=== PATIENT | male | born 1955 | race Caucasian/White ===

== ENCOUNTER 2019-05-14 17:14 | Emergency (ER) | payer MEDICARE ==
[2019-05-14 17:35] VITALS: TEMP 98.8
[2019-05-14] MEDS ORDERED: SULFA/TRIMETH 800/160 (DS) TAB 1 EA TAB PO ONE (17:38)
[2019-05-14] MEDS ORDERED: cefTRIAXone SODIUM 1 GM VIAL IM ONE (17:38)
[2019-05-14] MEDS ORDERED: LIDOCAINE 1% 10 ML VIAL INJ ONE (17:40)
--- NOTE | 2019-05-14 17:42 | ED.PDOC ---
History of Present Illness - General Chief Complaint: Skin/Abrasion/Tear Stated Complaint: abscess to right axilla Time Seen by Provider: 05/14/19 17:37 Source: patient Exam Limitations: no limitations - History of Present Illness Initial Comments: The patient is a 63-year-old male presenting secondary to cellulitis and abscess formation of the right axilla. He has 4 or 5 separate small spots. These have been present for the last 5 or 6 days. No definite fever. Severity: mild Improving Factors: nothing Worsening Factors: nothing Associated Symptoms: denies symptoms Allergies/Adverse Reactions: Allergies NO KNOWN ALLERGY Allergy (Verified 05/14/19 17:29) Home Medications: Ambulatory Orders Amlodipine Besylate 10 mg PO DAILY 05/14/19 DULoxetine HCL [Cymbalta] 30 mg PO BEDTIME 05/14/19 Gabapentin 400 mg PO Q4H 05/14/19 Sulfa/Trimeth 800/160 (Ds) Tab [Bactrim DS Tab] 1 ea PO BID #14 tab 05/14/19 raNITIdine HCL [Zantac] 150 mg PO DAILY 05/14/19 Review of Systems - Review of Systems Constitutional: States: no symptoms reported EENTM: States: no symptoms reported Respiratory: States: no symptoms reported Cardiology: States: no symptoms reported Gastrointestinal/Abdominal: States: no symptoms reported Genitourinary: States: no symptoms reported Musculoskeletal: States: no symptoms reported Skin: States: see HPI Neurological: States: no symptoms reported Endocrine: States: no symptoms reported All other Systems: No Change from Baseline Past Medical History (General) - Patient Medical History Hx Stroke: No Hx Congestive Heart Failure: No Hx Hypertension: Yes Hx Diabetes: No Hx Cancer: Yes - Throat - Vaccination History Hx Tetanus, Diphtheria Vaccination: - unknown Hx Influenza Vaccination: Yes Hx Pneumococcal Vaccination: Yes - Social History Hx Tobacco Use: No Family Medical History - Family History Father Family History: Unknown Living Status: Unknown Physical Exam - Physical Exam General Appearance: Alert, Comfortable, No apparent distress Eye Exam: bilateral normal Ears, Nose, Throat: hearing grossly normal, normal ENT inspection, normal pharynx Neck: full range of motion, supple Respiratory: no respiratory distress, no accessory muscle use Cardiovascular/Chest: normal peripheral pulses, no edema Peripheral Pulses: radial,right: 2+, radial,left: 2+ Gastrointestinal/Abdominal: non tender, soft Rectal Exam: deferred Back Exam: no CVA tenderness, no vertebral tenderness Extremity: normal range of motion, non-tender, normal inspection, no pedal edema, normal capillary refill 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 Comments: Vital Signs - 24 hr 05/14/19 17:26 Temperature 98.8 F Pulse Rate [ 95 H Left Brachial] Respiratory 20 Rate Blood Pressure 116/94 [Left Arm] O2 Sat by Pulse 98 Oximetry Progress - Progress Progress: 05/14/19 17:40 the patient is a 63-year-old male presenting secondary to cellulitis and small abscess formation of the right axilla. Risk and benefits of drainage are explained and patient agrees to proceed. Alcohol swab. Used to prep. 18- gauge needle is used to drain 1 cc of pus from small abscess. Patient was started on Bactrim and will be on it for 7 days. ER warnings were given for any worsening. Wound culture is being done. Departure - Departure Clinical Impression: Abscess of axillary region Disposition: Discharge to Home or Self Care Condition: Fair Departure Forms: ED Discharge - Pt. Copy, Patient Portal Self Enrollment Instructions: DI for Wound Infection Diet: regular diet Activity: increase activity as tolerated Referrals: Lizz Kennedy NP [Primary Care Provider] - 1-2 Weeks Prescriptions: Sulfa/Trimeth 800/160 (Ds) Tab [Bactrim DS Tab] 1 ea PO BID #14 tab Home Medications: Ambulatory Orders Amlodipine Besylate 10 mg PO DAILY 05/14/19 DULoxetine HCL [Cymbalta] 30 mg PO BEDTIME 05/14/19 Gabapentin 400 mg PO Q4H 05/14/19 Sulfa/Trimeth 800/160 (Ds) Tab [Bactrim DS Tab] 1 ea PO BID #14 tab 05/14/19 raNITIdine HCL [Zantac] 150 mg PO DAILY 05/14/19 Additional Instructions: the patient is a 63-year-old male presenting secondary to cellulitis and small abscess formation of the right axilla. drained 1 cc of pus from small abscess. Patient was started on Bactrim and will be on it for 7 days. ER warnings were given for any worsening. Wound culture is being done.
[2019-05-14 18:06] VITALS: BP 154/100; O2SAT 97
== END 2019-05-14 18:05 | disposition home or self-care (01) ==
LOC: ER 17:14
DX: L02.411 Cutaneous abscess of right axilla (principal); I10 Essential (primary) hypertension; Z85.89 Personal history of malignant neoplasm of other organs and systems
CPT/HCPCS: 87070; 87205; J0696

== ENCOUNTER 2019-05-14 22:20 | Inpatient (IN) | payer MEDICARE ==
--- NOTE | 2019-05-14 23:24 | RAD ---
EXAM: XR Chest, 1 View CLINICAL HISTORY: 63 years old and is Male; ams TECHNIQUE: Frontal view of the chest. COMPARISON: No relevant prior studies available. FINDINGS: Limitations: None. Lungs: Unremarkable. No consolidation. Pleural space: Unremarkable. No pneumothorax. Heart: Unremarkable. No cardiomegaly. Mediastinum: Unremarkable. Bones/joints: Unremarkable. IMPRESSION: No acute findings. Electronically signed by: Millie Loomis MD 05/14/2019 11:22 PM CDT
--- NOTE | 2019-05-14 23:25 | CT ---
CLINICAL HISTORY: ams COMPARISON: None. TECHNIQUE: CT HEAD WITHOUT IV CONTRAST on 05/14/2019 10:48 PM CDT This exam was performed according to our departmental dose-optimization program, which includes automated exposure control, adjustment of the mA and/or kV according to patient size and/or use of iterative reconstruction technique. FINDINGS: There is a tiny focus of hyperdensity in the left parietal lobe measuring almost 2 mm. This may represent a small focus of hemorrhage. Inman-white differentiation is preserved. There is no hydrocephalus. There is no significant volume loss for age. There are mild patchy hypodensities within the periventricular and subcortical white matter, consistent with microangiopathic ischemic changes. The calvarium is intact. Orbits and globes are unremarkable. The paranasal sinuses are clear. Mastoid air cells are clear. IMPRESSION: Very questionable tiny focus of hemorrhage in the left parietal lobe. This may represent a small benign calcification. Electronically signed by: Mike Hernandez MD 05/14/2019 11:23 PM CDT
[2019-05-14] MEDS ORDERED: POTASSIUM CHLORIDE ELIXIR 20 MEQ/15 ML UD PO ONE (23:27)
--- NOTE | 2019-05-14 23:58 | ED.PDOC ---
History of Present Illness - General Chief Complaint: Neuro Symptoms/Deficits Stated Complaint: headache, tired, unresponsive at home Time Seen by Provider: 05/14/19 22:31 Source: patient Exam Limitations: no limitations - History of Present Illness Initial Comments: the patient's 63-year-old male presenting to emergency room secondary to an episode of being unresponsive when his son went to wake him up. He was apparently unresponsive for about 15-20 minutes until EMS started rolling him through the door here. No history of any seizures. No real postictal state. Blood sugar was within normal limits. Vital signs were within normal limits. He reports that he has had periodic episodes of blacking out over the last 7 years and has had imaging of the neck and head showing some significant areas of decreased flow that are not amenable to intervention. EMS is suspicious that the patient is trying to get attention from his family. Additionally he has missing about 10-12 of his Cymbalta tablets. Son is suspicious that he has been over taking his medications. He does take Cymbalta and gabapentin. He is alert and oriented and in no distress here. There are no focal neurological deficits. No trauma.he reports that he just feels tired currently. He was actually seen here earlier in the day secondary to a small right axillary abscess which we did drain. He was started on Bactrim and seemed to tolerated that well. The wound culture has been done. Timing/Duration: 1/2 hour Severity: severe Improving Factors: nothing Worsening Factors: nothing Associated Symptoms: denies symptoms Allergies/Adverse Reactions: Allergies NO KNOWN ALLERGY Allergy (Verified 05/14/19 17:29) Home Medications: Ambulatory Orders Amlodipine Besylate 10 mg PO DAILY 05/14/19 DULoxetine HCL [Cymbalta] 30 mg PO BEDTIME 05/14/19 Gabapentin 400 mg PO Q4H 05/14/19 Sulfa/Trimeth 800/160 (Ds) Tab [Bactrim DS Tab] 1 ea PO BID #14 tab 05/14/19 raNITIdine HCL [Zantac] 150 mg PO DAILY 05/14/19 Review of Systems - Review of Systems Constitutional: States: malaise EENTM: States: no symptoms reported Respiratory: States: no symptoms reported Cardiology: States: no symptoms reported Gastrointestinal/Abdominal: States: no symptoms reported Genitourinary: States: no symptoms reported Musculoskeletal: States: see HPI - chronic pain issues Skin: States: see HPI Neurological: States: see HPI - chronic neuropathic pain Endocrine: States: no symptoms reported All other Systems: No Change from Baseline Past Medical History (General) - Patient Medical History Hx Seizures: No Hx Stroke: No Hx Dementia: No Hx Asthma: Yes Hx of COPD: No Hx Cardiac Disorders: No Hx Congestive Heart Failure: No Hx Pacemaker: No Hx Hypertension: Yes Hx Thyroid Disease: No Hx Diabetes: No Hx Gastroesophageal Reflux: Yes Hx Renal Disease: No Hx Cancer: Yes - Throat Hx of HIV: No Hx Hepatitis C: No Hx MRSA: No Surgical History: tonsillectomy - Vaccination History Hx Tetanus, Diphtheria Vaccination: - unknown Hx Influenza Vaccination: Yes Hx Pneumococcal Vaccination: Yes - Social History Hx Tobacco Use: No Hx Alcohol Use: No Family Medical History - Family History Father Family History: Unknown Living Status: Unknown Physical Exam - Physical Exam General Appearance: Alert, Comfortable, No apparent distress Eye Exam: bilateral normal Ears, Nose, Throat: hearing grossly normal, normal ENT inspection Neck: full range of motion, supple Respiratory: lungs clear, normal breath sounds, no respiratory distress, no accessory muscle use Cardiovascular/Chest: normal peripheral pulses, regular rate, rhythm, no edema Peripheral Pulses: radial,right: 2+, radial,left: 2+, dorsalis pedis,right: 2+, dorsalis pedis,left: 2+ Gastrointestinal/Abdominal: non tender, soft Rectal Exam: deferred Back Exam: no vertebral tenderness Extremity: normal range of motion - given previous surgeries, no pedal edema, no calf tenderness, normal capillary refill 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 Right axillary abscess and cellulitis Comments: Vital Signs - 24 hr 05/14/19 05/14/19 22:20 23:44 Temperature 99.8 F H Pulse Rate [ 101 H 96 H monitor] Respiratory 20 18 Rate Blood Pressure 134/85 124/89 [Left Arm] O2 Sat by Pulse 98 96 Oximetry Laboratory Tests 05/14/19 05/14/19 05/14/19 22:33 22:33 22:42 WBC 12.6 H RBC 4.60 L Hgb 16.1 Hct 46.2 MCV 100.5 H MCH 35.0 H MCHC 34.8 RDW 13.8 Plt Count 194 MPV 8.0 Absolute Neuts (auto) 8.10 H Absolute Lymphs (auto) 2.70 Absolute Monos (auto) 1.50 H Absolute Eos (auto) 0.10 Absolute Basos (auto) 0.10 Neutrophils % 64.7 Lymphocytes % 21.8 Monocytes % 11.9 H Eosinophils % 0.6 L Basophils % 1.0 Sodium 135 Potassium 3.0 L Chloride 102 Carbon Dioxide 24 Anion Gap 12.0 BUN 12 Creatinine 0.63 BUN/Creatinine Ratio 19.0 Random Glucose 96 Serum Osmolality 269.7 L Lactic Acid 1.2 Calcium 8.9 Magnesium 1.9 Total Bilirubin 1.3 H AST 73 H ALT 120 H Alkaline Phosphatase 141 H Creatine Kinase 57 CK-MB (CK-2) 1.4 CK-MB (CK-2) % Not Reportable Troponin I < 0.02 Serum Total Protein 7.7 Albumin 3.8 Globulin 3.9 H Albumin/Globulin Ratio 1.0 L Urine Color Urine Appearance Urine pH Ur Specific [place] Urine Protein Urine Glucose (UA) Urine Ketones Urine Blood Urine Nitrite Urine Bilirubin Urine Urobilinogen Ur Leukocyte Esterase Urine RBC Urine WBC Ur Epithelial Cells Urine Bacteria Urine Opiates Screen Urine Barbiturates Ur Phencyclidine Scrn U Amphetamin/Meth Scrn U Benzodiazepines Scrn U Cocaine Metab Screen U Cannabinoids Screen 05/14/19 05/14/19 22:47 23:06 WBC RBC Hgb Hct MCV MCH MCHC RDW Plt Count MPV Absolute Neuts (auto) Absolute Lymphs (auto) Absolute Monos (auto) Absolute Eos (auto) Absolute Basos (auto) Neutrophils % Lymphocytes % Monocytes % Eosinophils % Basophils % Sodium Potassium Chloride Carbon Dioxide Anion Gap BUN Creatinine BUN/Creatinine Ratio Random Glucose Serum Osmolality Lactic Acid Calcium Magnesium Total Bilirubin AST ALT Alkaline Phosphatase Creatine Kinase CK-MB (CK-2) CK-MB (CK-2) % Troponin I Serum Total Protein Albumin Globulin Albumin/Globulin Ratio Urine Color Yellow Urine Appearance Clear Urine pH 7.0 Ur Specific [place] 1.015 Urine Protein Negative Urine Glucose (UA) Negative Urine Ketones Negative Urine Blood Negative Urine Nitrite Negative Urine Bilirubin Negative Urine Urobilinogen 4.0 H Ur Leukocyte Esterase Trace H Urine RBC 0 Urine WBC 3-5 H Ur Epithelial Cells 0 Urine Bacteria Rare Urine Opiates Screen Negative Urine Barbiturates Negative Ur Phencyclidine Scrn Negative U Amphetamin/Meth Scrn Negative U Benzodiazepines Scrn Negative U Cocaine Metab Screen Negative U Cannabinoids Screen Negative head CT shows a 1.5 mm area of questionable hemorrhage versus calcification. Otherwise chronic changes are noted. EKG shows sinus tachycardia with PACs at 101 bpm. Normal QT interval. Normal R-wave progression. Normal axis. Nonspecific ST segment changes. No changes definitive for ischemia. Progress - Progress Progress: 05/15/19 00:00 the patient is a 63-year-old male presenting after an episode of unresponsiveness. Source of this is not entirely certain. Possibilities include the following but are not limited to the following: Seizure with postictal state, recurrent syncopal episode, acting out for attention, oversedation secondary to medication abuse, adverse reaction to medication otherwise, or TIA. He does need to have a repeat head CT to make sure that the small area has not epanded. Continue telemetry monitoring. Continue neurological monitoring. Admit for further evaluation. He is in no distress at this time. 05/15/19 00:02the patient did receive a dose of potassium for his hypokalemia. - EKG/XRAY/CT CT Ordered: Yes Departure - Departure Clinical Impression: Hypokalemia, Axillary abscess Altered mental state Qualifiers: Altered mental status type: somnolence Qualified Code(s): R40.0 - Somnolence Disposition: Admit Patient Departure Forms: ED Discharge - Pt. Copy, Patient Portal Self Enrollment Referrals: Lizz Kennedy NP [Primary Care Provider] - 1-2 Weeks Home Medications: Ambulatory Orders Amlodipine Besylate 10 mg PO DAILY 05/14/19 DULoxetine HCL [Cymbalta] 30 mg PO BEDTIME 05/14/19 Gabapentin 400 mg PO Q4H 05/14/19 Sulfa/Trimeth 800/160 (Ds) Tab [Bactrim DS Tab] 1 ea PO BID #14 tab 05/14/19 raNITIdine HCL [Zantac] 150 mg PO DAILY 05/14/19 Decision To Admit - Decistion To Admit Decision to Admit Reason: Medical Nature Decision to Admit Date: 05/15/19 Decision to Admit Time: 00:03
--- NOTE | 2019-05-15 00:36 | HP ---
SUPERVISING PHYSICIAN: Javy Kumar MD CHIEF COMPLAINT: Lethargy and headache. HISTORY OF PRESENT ILLNESS: Mr. Frederick is a 63-year-old male patient who presented to the Emergency Room last night for the second time with an episode of what was described as unresponsive by his son when he tried to wake him up. He endorses that his dad was unresponsive for approximately 15 to 20 minutes until EMS got to the Emergency Room, at which time he was at normal baseline levels. There is no history of seizures. He was not post ictal. Blood sugar was within normal limits. Vital signs were also within normal limits. There was some concern that the patient may have been taking his Cymbalta more than normal as there were approximately 10 to 12 pills missing from his bottle as well as gabapentin. In the Emergency Room, he was found to be alert and oriented without any distress, no focal motor deficits, just reporting to be tired. He had actually been seen earlier in the day for right axillary abscess which was I&D'd and started on Bactrim. Those wound cultures are pending. His white count on admission was 12,600, but without a left shift. Chemistries showed just a mildly low potassium at 3.0, otherwise all other electrolytes were within normal limits. Creatinine 0.63. Liver functions showed some elevation with bilirubin 1.3 with AST, ALT and alkaline phosphatase all elevated. The patient does endorse he has had some issues with elevation of his liver enzymes in the past, but does not really know why this has occurred. He denied drinking any significant amount of alcohol and takes Motrin for pain. Troponin was less than 0.02. Urinalysis showed just a trace of leukocyte esterase, 4 urobilinogen. Microscopic revealed 0 RBCs, 3 to 5 WBCs, no epithelials, rare bacteria. He did have a toxicology screen that was negative for all substances tested. CT of the head in the Emergency Room prior to admission per radiologic interpretation showed a very questionable tiny focus of hemorrhage in the left parietal lobe that may represent a small benign calcification. Chest x-ray per radiologic interpretation showed no acute findings. There was concern that the patient had had a questionable transient ischemic attack. Therefore, the patient is going to be placed in Observation for continued evaluation neurologically and close monitoring overnight. He was placed in Observation in stable condition. PAST MEDICAL HISTORY: 1. Hypertension. 2. Throat cancer without any treatment. The patient is unsure as to what it really is. PAST SURGICAL HISTORY: 1. Benign tumor removed from his left chest wall. 2. Bladder surgery for bladder stone as a teenager. HOME MEDICATIONS: 1. Zantac 150 mg daily. 2. Gabapentin 400 mg q.4h. 3. Cymbalta 30 mg daily at bedtime. 4. Amlodipine 10 mg daily. ALLERGIES: NO KNOWN DRUG ALLERGIES. FAMILY HISTORY: His father at age 80 with a history of colon cancer. His mother at age 87 of natural causes. He has three older brothers that are all healthy. REVIEW OF SYSTEMS: CONSTITUTIONAL: General malaise, somnolence. Denies fevers or chills. HEENT: Negative for sore throats, earaches, sore throat, nasal congestion. Positive for headache. RESPIRATORY: Negative for coughing, wheezing shortness of breath. CARDIOVASCULAR: Negative for chest pain, palpitations or syncopal episodes. GASTROINTESTINAL: Negative for nausea, vomiting, diarrhea, constipation. GENITOURINARY: Negative for dysuria, hematuria, polyuria. MUSCULOSKELETAL: As noted in history of present illness, chronic back pain issues. SKIN: As noted in history of present illness, recent I&D to right axilla abscess. NEUROLOGIC: Chronic neuropathy. He reports no ataxia or seizures. PHYSICAL EXAMINATION: VITAL SIGNS: On admission, temperature 99.8. Pulse 101. Blood pressure 134/85. Respirations 20. Saturation 98% on room air. Admission weight 89.7 kg. GENERAL: The patient appears to be in no obvious acute distress. He is resting comfortably. He is alert. HEENT: Tympanic membranes clear bilaterally. Oropharynx is pink, moist without any lesions. NECK: Supple, nontender with full range of motion. No jugular venous distention noted. RESPIRATORY: Lungs clear to auscultation bilaterally without any rhonchi, wheezes or rales. CARDIOVASCULAR: Regular rate and rhythm without any appreciable murmurs, gallops, or rubs. ABDOMEN: Soft, nontender. Positive bowel sounds. EXTREMITIES: There is no noted cyanosis, clubbing or edema. NEUROLOGIC: The patient is alert and oriented times three. Cranial nerves II- XII are grossly intact. Facial features are symmetrical. Extraocular movements are within normal limits. There are no notable focal motor deficits, auditory or sensory deficits. SKIN: Warm, pink and dry. Right axillary region shows an abscess and cellulitis with recently incision and drainage. Difficult to fully assess if that is actually a drainable abscess. LABORATORY: White count 12,600, hemoglobin 16.1, hematocrit 46.2 with microcytosis on indices with platelet count 194,000. Differential without a left shift. Chemistries initially showed just a mildly low potassium of 3.0. All other electrolytes were within normal limits. BUN 12, creatinine 0.63. Lactic acid 1.2, magnesium and calcium both normal with magnesium 1.9. Total bilirubin elevated at 1.3, AST 73, ALT 120, alkaline phosphatase elevated at 141. Urinalysis showed 4 urobilinogen with trace leukocyte esterase. Microscopic showed 0 RBCs, 3 to 5 WBCs, no epithelials with rare bacteria. Toxicology screen was negative for all substances tested. MICROBIOLOGY: There is a wound culture from I&D done in the Emergency Room previously that is pending. RADIOLOGY: CT of the head per radiologic interpretation shows very questionable tiny focus of hemorrhage in the left parietal lobe which may represent a small benign calcification. MRI of the brain was pending at the time of admission. Carotid ultrasounds pending. CT of the neck pending. Echocardiogram pending. ASSESSMENT: 1. Brief episode of unresponsiveness with questionable transient ischemic attack pending further workup with no acute findings on examination with the patient having a remote history of possible carotid stenosis, but unsure as to which side. 2. Hypertension. 3. Elevated liver enzymes, uncertain etiology. 4. Reported throat cancer that has not been treated. 5. Abscess to the right axilla with cellulitis with a recent incision and drainage, cultures are pending. 6. Leukocytosis without a left shift, probably secondary to recent treatment of underlying abscess. PLAN: Mr. Frederick is going to be placed in Observation today for further neurologic workup, close telemetry monitoring and q.4h. neuro checks. I have ordered a soft tissue ultrasound of the right axilla to assess whether there are still some pockets that need to be drained. We will consult with Surgery after those results are available. We will await further studies of his carotids, MRI of the brain, echocardiogram. If those results come back negative for bleed, we will start him on an antiplatelet and statin therapy. We will start him on DVT prophylaxis per protocol once results are available from scans. He will be on a regular diet. We will resume his home medications once those have been updated and verified. We will anticipate his length of stay to be at least 1 to 2 days pending further workup. Until the patient can transition to outpatient management, we will continue to monitor and treat as needed. #[id number] MTDD
[2019-05-15] MEDS ORDERED: SODIUM CHLORIDE 0.9% (FLUSH) 10 ML SYG IV PRN (01:44)
[2019-05-15] MEDS: IV SET AND CAP CHANGE INJ INJ SCH (03:45)
[2019-05-15] MEDS ORDERED: SULFA/TRIMETH 800/160 (DS) TAB 1 EA TAB PO SCH (09:00)
[2019-05-15] MEDS ORDERED: VANCOMYCIN PER PHARMACY INJ SCH (10:30)
--- NOTE | 2019-05-15 11:26 | MRI ---
EXAM DESCRIPTION: Brain w/o Contrast: MRI. CLINICAL HISTORY: TIA vs bleed COMPARISON: Noncontrast CT scan of the head 05/14/2019. TECHNIQUE: Multiplanar, high-field MRI unit, multiple diffusion sequences, multiple conventional sequences without contrast. FINDINGS: Bilateral confluent and multi focal hyperintense FLAIR and T2-weighted signal in the periventricular lugo radiata white matter and centrum semiovale in the frontal parietal and occipital lobes. Asymmetric subcortical lesion left frontal centrum semiovale. Also subcortical focal lesions bilaterally in these lobes and the temporal lobes.. No hemorrhage, no cerebral edema, no diffusion restriction. Bilateral cysts versus perivascular spaces in the basal ganglia, with no ischemic lesions or diffusion restriction. Normal signal in the brainstem and cerebellar hemispheres. No hemorrhage, no parenchymal edema, and no diffusion restriction. Concordance of the diffusion and non-diffusion sequences with no diffusion restriction. Cortical sulci, ventricles, and other CSF spaces, and the subdural spaces are symmetric and age-appropriate. No effacement or displacement. No midline shift. No extra-axial hemorrhage. Normal flow signal void in the major vessels of the [place], and the venous sinuses. Left vertebral dominance. IACs are symmetric bilaterally. No fluid in the bilateral mastoid air cells. No mass effect in the bilateral cerebellopontine angles. Pituitary gland occupies most of the sella. Base of the cerebellar tonsils is slightly above the foramen magnum. Minimal mucoperiosteal thickening in the left antrum, but no acute air-fluid levels. The bony calvarium is intact. IMPRESSION: 1. White matter lesions in the bilateral centrum semiovale and lugo radiata as well as the subcortical white matter in bilateral cerebral hemispheres. No diffusion restriction, no hemorrhage, no cerebral edema. Most likely related to aging and/or cerebral microvascular disease. No evidence of acute or subacute significant cerebral edema or infarction. 2. Minimal chronic paranasal sinusitis. Electronically signed by: Angel Luis Glass MD 05/15/2019 11:23 AM CDT
[2019-05-15] MEDS ORDERED: SODIUM CHL 0.9% 50ML MIN-BAG+ 50 ML IVPB ONE (11:30)
[2019-05-15] MEDS ORDERED: cefTRIAXone SODIUM 1 GM VIAL ONE (11:31)
[2019-05-15] MEDS ORDERED: VANCOMYCIN HCL INJ 500 MG VIAL ONE ×2 (11:31→19:02)
[2019-05-15] MEDS ORDERED: SODIUM CHLORIDE 0.9% 250ML 250 ML ONE ×2 (11:31→19:03)
[2019-05-15] MEDS ORDERED: VANCOMYCIN HCL INJ 1,000 MG VIAL IVPB ONE ×2 (11:32→19:03)
[2019-05-15] MEDS: amLODIPine BESYLATE 5 MG TAB PO SCH (11:44)
[2019-05-15] MEDS: cefTRIAXone SODIUM 1 GM in SODIUM CHL 0.9% 50ML MIN-BAG+ 50 ML IVPB SCH (11:45)
[2019-05-15] MEDS: GABAPENTIN 400 MG CAP PO SCH ×5 (11:50→23:40)
[2019-05-15] MEDS ORDERED: KETOROLAC TROMETHAMINE INJ 30 MG/ML VIAL IV ONE (11:58)
--- NOTE | 2019-05-15 12:07 | US ---
EXAM DESCRIPTION: Carotid Duplex: ULTRASOUND. CLINICAL HISTORY: 63 years Male TIA. COMPARISON: MRI scan of the brain without contrast on this visit. CT scan without IV contrast yesterday. TECHNIQUE: Transcutaneous scanning utilizing reveles-scale and Doppler modes to evaluate the bilateral carotid systems and vertebral arteries. Percentage of diameter of stenosis or no stenosis recorded will be based upon NASCET criteria. FINDINGS: Peak systolic/end diastolic (CM-Sec) CCA Right 72/18 Left 68/14. ICA Right proximal 41/11, distal 57/23. Left proximal 156/57, mid 89/20. Vertebral Right 47/5 Left 44/15. ECA (PS Only) Right 54 left 55. ICA/CCA peak systolic ratio: Right 0.8 Left 1.3 ICA/CCA end diastolic ratio: Right 2.3 Left 4.0 Vertebral arteries: antegrade flow. Comments: Atherosclerotic calcifications in the bilateral common carotid bulbs and the proximal ICAs. Spectral broadening in the bilateral proximal and mid ICAs. Color turbulent flow in the distal right ICA in the proximal and mid left ICA. 64% area stenosis and 69% diameter stenosis in the mid left common carotid bulb. Grayscale measurements are near critical, with the near critical Doppler measurement of the left ED ratio IMPRESSION: 1. Doppler evaluation of the bilateral carotid systems and vertebral arteries shows no hemodynamically significant stenoses in the left CCA bulb/ICA, but grayscale measurements are just below the critical diameter stenoses of 70%. Consider correlation with neck CTA.. 2. Moderate amount of plaque seen in the carotid arteries bilaterally. Bilateral vertebral arteries showed antegrade-cephalad flow. Electronically signed by: Angel Luis Glass MD 05/15/2019 12:04 PM CDT
[2019-05-15] MEDS: VANCOMYCIN HCL INJ 1,000 MG, VANCOMYCIN HCL INJ 500 MG in SODIUM CHLORIDE 0.9% 250ML 25... IVPB SCH ×2 (12:57→23:40)
[2019-05-15] MEDS: IBUPROFEN 400 MG TAB PO PRN (13:21)
--- NOTE | 2019-05-15 13:39 | CT ---
TECHNIQUE: Volumetric CT angiographic data acquisition obtained of the head and neck using CTA head and neck protocol following the intravenous administration of contrast. Axial reconstructions submitted. Coronal, oblique and sagittal MIP slab reconstructions also performed on computer workstation. 3D MIP reformats provided. Grading system is mild <50%, moderate 50-69%, and severe 70% and greater. This exam was performed according to our departmental dose-optimization program, which includes automated exposure control, adjustment of the mA and/or kV according to patient size and/or use of iterative reconstruction technique. CLINICAL HISTORY PROVIDED: f/u carotid left side stenosis, possible TIA COMPARISON: May 15, 2019 FINDINGS: Aorta / Proximal Great Vessels : Atherosclerotic plaque in the aortic arch. Aberrant origin of the right subclavian artery. Right Carotid: Minimal atherosclerotic plaque in the proximal right internal carotid artery. No hemodynamically significant stenosis Right Vertebral: The origin of the right vertebral artery is obscured. No hemodynamically significant stenosis identified within the well-visualized portions of the right vertebral artery. Left Carotid: Tortuous course of the left internal carotid artery. There is calcified and noncalcified atherosclerotic plaque involving the proximal left internal carotid artery resulting in 50-69%. Measurements approach the high end of this range. Left Vertebral: Unremarkable. No stenosis, occlusion, or dissection. Visible Intracranial Vasculature: Unremarkable. No stenosis, occlusion, or dissection. Incidental Findings: Left thyroid lobe nodule measuring 1.4 cm. No follow-up warranted. Left upper lobe calcified granuloma. IMPRESSION: Left internal carotid artery calcified and noncalcified atherosclerotic plaque resulting in 50-69% stenosis (measurements approach the high end of this range). Electronically signed by: Roby Hammond MD 05/15/2019 1:37 PM CDT
--- NOTE | 2019-05-15 15:30 | US ---
EXAM DESCRIPTION: Soft Tissue,Extremity: ULTRASOUND. CLINICAL HISTORY: 63 years Male Right Axillary Abscess. COMPARISON: Multiple imaging studies today and yesterday. TECHNIQUE: Transcutaneous scanning: Inman-scale and Doppler modes. FINDINGS: Small geographic subcutaneous adipose lesion in the right axilla mostly solid with minimal fluid. Dimensions are 2.3 x 1.6 x 1.1 cm. Minimal vascularity on the superior aspect. More likely to represent cellulitis than an abscess. Region to is more inferior with similar shape and margins and also minimal fluid. No significant vascularity. Dimensions are 1.4 x 1.2 x 0.8 cm. Anterior margin is Just below the skin surface. Slightly more inferior is a more fluidlike lesion with minimal vascularity on the anterior aspect relatively circumscribed margins, wider than tall orientation and posterior acoustic enhancement. Dimensions are 6 x 5 x 4 mm. No dominant solid masses, highly vascular lesions, or large calcifications. IMPRESSION: These lesions near the right axilla are more likely to represent focal cellulitis and abscess. All the lesions are in the adipose tissue. Almost no vascularity. The largest lesion is 2.3 cm, and is the most superior. The more inferior lesion is the smallest, more fluid, and measuring only 6 mm. Electronically signed by: Angel Luis Glass MD 05/15/2019 3:28 PM CDT
[2019-05-15] MEDS: ASPIRIN (ENTERIC COATED) 81 MG TAB PO SCH (20:14)
[2019-05-15] MEDS: ATORVASTATIN 20 MG TAB PO SCH (20:14)
[2019-05-15] MEDS: DULoxetine HCL 30 MG CAP PO SCH (20:15)
[2019-05-15] MEDS: ENOXAPARIN SODIUM 40 MG/0.4 ML SYG SUBCU SCH (20:15)
[2019-05-16] MEDS: IBUPROFEN 400 MG TAB PO PRN ×2 (02:41→08:39)
[2019-05-16] MEDS: GABAPENTIN 400 MG CAP PO SCH ×6 (03:41→23:21)
[2019-05-16] MEDS ORDERED: LIDOCAINE 1% 10 ML VIAL INJ ONE (07:00)
[2019-05-16] MEDS ORDERED: PROPOFOL 200 MG/20 ML VIAL IV ONE (07:00)
[2019-05-16] MEDS ORDERED: raNITIdine HCL INJ 25 MG/ML VIAL ONE (07:00)
[2019-05-16] MEDS ORDERED: SODIUM CHL 0.9% 50ML MIN-BAG+ 50 ML IVPB ONE (08:28)
[2019-05-16] MEDS ORDERED: cefTRIAXone SODIUM 1 GM VIAL ONE (08:29)
[2019-05-16] MEDS: amLODIPine BESYLATE 5 MG TAB PO SCH (08:40)
[2019-05-16] MEDS: ASPIRIN (ENTERIC COATED) 81 MG TAB PO SCH (08:40)
[2019-05-16] MEDS: PANTOPRAZOLE SODIUM IV 40 MG VIAL IV SCH (10:28)
[2019-05-16] MEDS: traMADol HCL 50 MG TAB PO PRN (10:29)
[2019-05-16] MEDS: cefTRIAXone SODIUM 1 GM in SODIUM CHL 0.9% 50ML MIN-BAG+ 50 ML IVPB SCH (10:29)
--- NOTE | 2019-05-16 11:05 | PN ---
SUPERVISING PHYSICIAN: Javy Kumar MD DATE: 05/16/19 SUBJECTIVE: The patient is lying in bed. He complains of pain in his right axilla. He also has some acid reflux. He has had no headaches, chest pain or shortness of breath. OBJECTIVE: VITAL SIGNS: Temperature 98.1. Heart rate 80. Blood pressure 126/74. Respiratory rate 18. O2 saturation 97% on room air. RESPIRATORY: Essentially clear to auscultation bilaterally. CARDIAC: Regular rate and rhythm. GASTROINTESTINAL: Abdomen is soft, nondistended, nontender. Bowel sounds are positive. SKIN: He does have two large abscesses under his right axilla. One is approximately 3 cm in diameter, the other is approximately 2 cm in diameter. They are very firm. There is no fluctuance. They are erythematous and slightly edematous, tender to palpation. He also has several very small, less than 1 cm, areas around his right axilla. NEUROLOGIC: Awake, alert and oriented times three. LABORATORY: WBCs 10,900, hemoglobin 14.7, hematocrit 42.9. Sodium 134, potassium 3.4, total bilirubin 1.4, AST 58, ALT 96, alkaline phosphatase 124. His preliminary wound culture shows MRSA, still pending susceptibility. RADIOLOGY: Soft tissue of the neck shows lesions near the right axilla or more likely to represent focal cellulitis than abscess. All the lesions are in the adipose tissue with almost no vascularity. The largest lesion is 2.3 cm and is the most superior. The more inferior lesion is the smallest, more fluid, and measuring only 6 mm. His neck CTA shows left internal carotid artery calcified and noncalcified atherosclerotic plaque resulting in in 50-69% stenosis. Carotid ultrasound shows 1) Doppler evaluation of the bilateral carotid systems and vertebral arteries shows no hemodynamically significant stenoses in the left CCA bulb/ICA, but grayscale measurements are just below the critical diameter stenoses of 70%. Consider correlation with neck CTA. 2) Moderate amount of plaque seen in the carotid arteries bilaterally. Bilateral vertebral arteries showed antegrade-cephalad flow. The brain MRI shows 1) White matter lesions in the bilateral centrum semiovale and lugo radiata as well as the subcortical white matter in bilateral cerebral hemispheres. No diffusion restriction, no hemorrhage, no cerebral edema. Most likely related to aging and/or cerebral microvascular disease. No evidence of acute or subacute significant cerebral edema or infarction. 2) Minimal chronic paranasal sinusitis. TESTING: His echocardiogram shows 1) Aortic valve is sclerotic, but opens well. 2) Borderline concentric left ventricular hypertrophy. 3) Grade 2 diastolic dysfunction consistent with impaired relaxation and mild to moderate increase in filling pressures. 4) Left ventricular ejection fraction estimated by 2D at 60- 65%. All other labs and films have been reviewed via the EMR. ASSESSMENT: 1. Sepsis related to right axilla cellulitis. His heart rate on admission was 101 and his WBCs were 12,600. He is presently on vancomycin and Bactrim. 2. Brief episode of unresponsiveness with questionable transient ischemic attack with his brain MRI showing negative for acute ischemia. 3. Carotid stenosis at upper limits of normal, mostly on the left side. He will need vascular consult. 4. Hypertension. 5. Elevated liver enzymes, uncertain etiology. 6. Reported throat cancer that has not been treated. 7. Leukocytosis without a left shift, most likely secondary to #1. PLAN: We will continue present supportive care. I have changed the patient from observation to an inpatient due to his sepsis related to cellulitis. On discharge, he will need a vascular consult. We will continue him on vancomycin and Bactrim. We will continue to wait for the sensitivities. I have also consulted Dr. Javy Camejo to examine his right axilla and treat as appropriate. We will continue with several additional days of vancomycin until the C&S is resulted. Encourage good pulmonary hygiene. We will continue to monitor the patient closely and follow as needed. #[id number] [facility]
[2019-05-16] MEDS ORDERED: VANCOMYCIN HCL INJ 500 MG VIAL ONE ×2 (11:18→19:05)
[2019-05-16] MEDS ORDERED: VANCOMYCIN HCL INJ 1,000 MG VIAL IVPB ONE ×2 (11:19→19:07)
[2019-05-16] MEDS ORDERED: SODIUM CHLORIDE 0.9% 250ML 250 ML ONE ×2 (11:19→19:06)
[2019-05-16] MEDS: VANCOMYCIN HCL INJ 1,000 MG, VANCOMYCIN HCL INJ 500 MG in SODIUM CHLORIDE 0.9% 250ML 25... IVPB SCH ×2 (11:32→23:20)
[2019-05-16] MEDS: HYDROcodone 5MG/APAP 325MG 1 EA TAB PO PRN (15:49)
[2019-05-16] MEDS: ATORVASTATIN 20 MG TAB PO SCH (20:31)
[2019-05-16] MEDS: DULoxetine HCL 30 MG CAP PO SCH (20:31)
[2019-05-16] MEDS: ENOXAPARIN SODIUM 40 MG/0.4 ML SYG SUBCU SCH (20:31)
[2019-05-17] MEDS: GABAPENTIN 400 MG CAP PO SCH ×5 (03:36→20:04)
[2019-05-17] MEDS: ASPIRIN (ENTERIC COATED) 81 MG TAB PO SCH (07:54)
[2019-05-17] MEDS: amLODIPine BESYLATE 5 MG TAB PO SCH (07:54)
[2019-05-17] MEDS ORDERED: SODIUM CHL 0.9% 50ML MIN-BAG+ 50 ML IVPB ONE (09:47)
[2019-05-17] MEDS ORDERED: cefTRIAXone SODIUM 1 GM VIAL ONE (09:47)
[2019-05-17] MEDS: cefTRIAXone SODIUM 1 GM in SODIUM CHL 0.9% 50ML MIN-BAG+ 50 ML IVPB SCH (09:52)
[2019-05-17] MEDS: PANTOPRAZOLE SODIUM IV 40 MG VIAL IV SCH (09:52)
--- NOTE | 2019-05-17 10:20 | PN ---
SUPERVISING PHYSICIAN: Javy Kumar MD DATE: 05/17/19 SUBJECTIVE: The patient is lying in bed asleep. He awakens easily. He has pain in that right underarm, but Dr. Camejo relieved some pressure yesterday and he felt it was improved and the pain medications are helping. He denies shortness of breath, nausea, vomiting, diarrhea or chest pain. OBJECTIVE: VITAL SIGNS: Temperature 98.0. Heart rate 91. Blood pressure 168/84. Respiratory rate 18. O2 saturation 98% on room air. RESPIRATORY: Essentially clear to auscultation bilaterally. CARDIAC: Regular rate and rhythm. GASTROINTESTINAL: Abdomen is soft, nondistended, nontender. Bowel sounds are positive. SKIN: The area under his right axilla is erythematous and edematous with the abscesses as noted yesterday. The erythema is much improved since yesterday. There is a small amount of fluctuance in both of the larger ones, but the abscess is rather firm, but there is some slight improvement. NEUROLOGIC: Awake, alert and oriented times three. LABORATORY: CBC is unremarkable. Electrolytes are within normal limits. AST 69, ALT 98. All other labs and films have been reviewed via the EMR. ASSESSMENT: 1. Sepsis related to right axilla cellulitis. His heart rate on admission was 101 and his WBCs were 12,600. He is presently on vancomycin and Bactrim. 2. Brief episode of unresponsiveness with questionable transient ischemic attack with his brain MRI showing negative for acute ischemia. 3. Carotid stenosis at upper limits of normal, mostly on the left side. He will need vascular consult. 4. Hypertension. 5. Elevated liver enzymes, uncertain etiology. 6. Reported throat cancer that has not been treated. 7. Leukocytosis without a left shift, most likely secondary to #1. PLAN: We will continue present supportive care. Yesterday, I gave him some tramadol and that did not help with his pain, so I changed him to [place] and that is controlling his pain. I have ordered routine labs for the in the morning. Dr. Javy Camejo, general surgeon, is taking him to surgery today to do an I&D on the abscesses. He will continue on his Bactrim and vancomycin for now unless Dr. Camejo would like this changed and until the sensitivity reports are back. We will follow those and treat as indicated. I will also defer to Dr. Camejo for any postoperative orders. We will continue to monitor the patient closely and follow as needed. #[id number] [facility]
[2019-05-17] MEDS ORDERED: KETAMINE HCL 100 MG/ML VIAL ONE (11:38)
[2019-05-17] MEDS ORDERED: MIDAZOLAM INJ 2 MG/2 ML VIAL ONE (11:38)
[2019-05-17] MEDS ORDERED: fentaNYL CITRATE INJ 50 MCG/ML AMP ONE (11:39)
[2019-05-17] MEDS ORDERED: ELECTROLYTE-A 1,000 ML IVS ONE (12:23)
[2019-05-17] MEDS ORDERED: BUPIVACAINE 0.5% W/EPI 30 ML VIAL INJ ONE (12:38)
[2019-05-17] MEDS ORDERED: VANCOMYCIN HCL INJ 500 MG VIAL ONE ×2 (12:44→19:13)
[2019-05-17] MEDS ORDERED: VANCOMYCIN HCL INJ 1,000 MG VIAL IVPB ONE ×2 (12:44→19:15)
[2019-05-17] MEDS ORDERED: SODIUM CHLORIDE 0.9% 250ML 250 ML ONE ×2 (12:45→19:14)
[2019-05-17] MEDS: VANCOMYCIN HCL INJ 1,000 MG, VANCOMYCIN HCL INJ 500 MG in SODIUM CHLORIDE 0.9% 250ML 25... IVPB SCH ×3 (13:05→20:40)
[2019-05-17] MEDS: HYDROcodone 5MG/APAP 325MG 1 EA TAB PO PRN ×2 (13:17→20:20)
--- NOTE | 2019-05-17 13:45 | OP ---
DATE OF PROCEDURE: 05/17/19 PREOPERATIVE DIAGNOSIS: 1. Right axilla abscess times 3. POSTOPERATIVE DIAGNOSIS: 1. Right axilla abscess times 3. PROCEDURE: 1. Incision and drainage of axilla abscess times 2. 2. Excisional debridement, full thickness skin and subcutaneous fat, of axillary abscess, 5 x 3 cm, sharply. 3. I&D of larger axillary abscess with excision and sharp debridement of subcutaneous tissue times 1. SURGEON: Javy Camejo MD ANESTHESIA: General. FINDINGS: As described. CONDITION: Stable. SPECIMEN: None. PLAN: Admit. INDICATION: This has been admitted since 05/14/19 with axilla abscess. He also had evidence of a transient ischemic attack from which he is stable, but he has had history of syncopal episodes, so I do not know if it is history of seizures or transient ischemic attack, but he is feeling fine as far as that goes. He also has right axillary abscesses. One of them is fluctuant with purulence and the erythema is extending. He has least 3 others in that area, ultimately we found 4. He was consented for surgery. PROCEDURE: General anesthesia was induced. He was prepped and draped in sterile fashion. The larger one was addressed first. A small ellipsis was made and cut out the overlying tissue and into the moderately large pus pocket. It was extensive. This is why the erythema was heading up onto his anterior shoulder and there was easy passage of the subcutaneous fat overlying the muscle. There was no evidence of gross fasciitis and no purulence up here, just loose tissue. We got the whole area that seemed affected. It was then irrigated. Good hemostasis was obtained with cauterization. Next, a single abscess more in the middle of the axilla was lanced. Purulence was expressed. Healthy appearing tissue was underneath that. Another small one a little more distal on the upper arm and then a large one right in the middle. It appeared more like a hidradenitis type and there were 2 with a small bridge about 3 cm. Elliptical incision was made to remove the irregular skin and get into the subcutaneous tissue. The abscess was drained. We sharply debrided this and all that was about 5 x 3 cm of incision and debridement of skin and subcutaneous tissue with a knife and cautery for hemostasis. The last one was medial on the lateral chest near the axilla. It was also just lanced and purulence expressed. Hemostasis was good. Each were irrigated. All visible disease was treated. The ones that could be packed were packed with a 4 x 4 fluff and dressing applied. He was awakened and taken to Recovery to be admitted. #[id number] [facility]
[2019-05-17] MEDS ORDERED: MORPHINE SULFATE INJ 10 MG/ML VIAL ONE (14:00)
[2019-05-17] MEDS: MORPHINE SULFATE INJ 10 MG/ML VIAL IV PRN ×2 (14:05→21:18)
[2019-05-17] MEDS: DULoxetine HCL 30 MG CAP PO SCH (20:04)
[2019-05-17] MEDS: ENOXAPARIN SODIUM 40 MG/0.4 ML SYG SUBCU SCH (20:04)
[2019-05-17] MEDS: ATORVASTATIN 20 MG TAB PO SCH (20:04)
[2019-05-18] MEDS: traMADol HCL 50 MG TAB PO PRN (00:03)
[2019-05-18] MEDS: GABAPENTIN 400 MG CAP PO SCH ×6 (00:04→20:54)
[2019-05-18] MEDS: IV SET AND CAP CHANGE INJ INJ SCH (01:04)
[2019-05-18] MEDS: HYDROcodone 5MG/APAP 325MG 1 EA TAB PO PRN ×4 (03:15→22:39)
[2019-05-18] MEDS ORDERED: VANCOMYCIN HCL INJ 500 MG VIAL ONE ×3 (04:48→20:41)
[2019-05-18] MEDS ORDERED: VANCOMYCIN HCL INJ 1,000 MG VIAL IVPB ONE ×3 (04:48→20:41)
[2019-05-18] MEDS ORDERED: SODIUM CHLORIDE 0.9% 250ML 250 ML ONE ×3 (04:48→20:41)
[2019-05-18] MEDS: MORPHINE SULFATE INJ 10 MG/ML VIAL IV PRN ×3 (04:54→15:30)
[2019-05-18] MEDS: VANCOMYCIN HCL INJ 1,000 MG, VANCOMYCIN HCL INJ 500 MG in SODIUM CHLORIDE 0.9% 250ML 25... IVPB SCH (04:57)
[2019-05-18] MEDS: amLODIPine BESYLATE 5 MG TAB PO SCH (08:14)
[2019-05-18] MEDS: ASPIRIN (ENTERIC COATED) 81 MG TAB PO SCH (08:14)
[2019-05-18] MEDS ORDERED: SODIUM CHL 0.9% 50ML MIN-BAG+ 50 ML IVPB ONE (10:54)
[2019-05-18] MEDS ORDERED: cefTRIAXone SODIUM 1 GM VIAL ONE (10:54)
[2019-05-18] MEDS: cefTRIAXone SODIUM 1 GM in SODIUM CHL 0.9% 50ML MIN-BAG+ 50 ML IVPB SCH (10:55)
[2019-05-18] MEDS: PANTOPRAZOLE SODIUM IV 40 MG VIAL IV SCH (11:27)
--- NOTE | 2019-05-18 13:15 | PN ---
SUPERVISING PHYSICIAN: Javy Kumar MD DATE: 05/18/19 SUBJECTIVE: The patient is sitting up in his bed. He is eating. He has no complaints of shortness of breath, nausea or vomiting. He does complain of drainage under his arm that has saturated the dressing. The nurses have changed them and we discussed his discharge plan. He was not sure if he would be able to get any of his supplies for his dressing changes. Otherwise, no complaints of shortness of breath, nausea, vomiting, diarrhea, constipation or chest pain. OBJECTIVE: VITAL SIGNS: Temperature 98.5. Heart rate 82. Blood pressure 128/78. Respiratory rate 17. O2 saturation 94% on room air. RESPIRATORY: Essentially clear to auscultation bilaterally, slightly diminished at the bases. CARDIAC: Regular rate and rhythm. GASTROINTESTINAL: Abdomen is soft, nondistended, nontender. Bowel sounds are positive. SKIN: He has a dressing under his arm that has some serosanguineous fluid on it, but there is only minimal drainage noted. The erythema is reduced from yesterday. It is very mildly tender to palpation in that area. NEUROLOGIC: Awake, alert and oriented times three. LABORATORY: WBCs 6.6, hemoglobin 14.1, hematocrit 41.3. Electrolytes are basically within normal limits. AST elevated at 85, ALT 107, alkaline phosphatase 124. The wound cultures are positive for MRSA with sensitivities to gentamicin, rifampin, tetracycline and vancomycin. All other labs and films have been reviewed via the EMR. ASSESSMENT: 1. Sepsis related to right axilla cellulitis. His heart rate on admission was 101 and his WBCs were 12,600. He is presently on vancomycin and Bactrim. 2. Abscess under right axilla status post I&D, postoperative day #1, performed by Dr. Javy Camejo, general surgeon. 3. Brief episode of unresponsiveness with questionable transient ischemic attack with his brain MRI showing negative for acute ischemia. 4. Carotid stenosis at upper limits of normal, mostly on the left side. He will need vascular consult. 5. Hypertension. 6. Elevated liver enzymes, uncertain etiology. 7. Reported throat cancer that has not been treated. 8. Leukocytosis without a left shift, most likely secondary to #1, resolved. PLAN: We will continue present supportive care. I spoke with Dr. Camejo and he felt like the patient could be discharged with close followup. According to the patient, he may not be able to do wound care and since it is draining, I would like to keep him for one additional day. Hopefully we can get him some supplies to help with his wound care. I will also get him an appointment for followup next week with Dr. Camejo. He will need to be sent home on doxycycline tomorrow. We will hopefully discharge tomorrow. We will continue to monitor the patient closely and follow as needed. #[id number] [facility]
[2019-05-18] MEDS: VANCOMYCIN HCL INJ 1,000 MG, VANCOMYCIN HCL INJ 250 MG in SODIUM CHLORIDE 0.9% 250ML 25... IVPB SCH ×2 (13:47→21:28)
[2019-05-18] MEDS: DULoxetine HCL 30 MG CAP PO SCH (21:28)
[2019-05-18] MEDS: ENOXAPARIN SODIUM 40 MG/0.4 ML SYG SUBCU SCH (21:28)
[2019-05-18] MEDS: ATORVASTATIN 20 MG TAB PO SCH (21:28)
[2019-05-19] MEDS: traMADol HCL 50 MG TAB PO PRN ×2 (00:20→06:04)
[2019-05-19] MEDS: GABAPENTIN 400 MG CAP PO SCH ×4 (00:21→12:10)
[2019-05-19 02:46] VITALS: O2SAT 96
[2019-05-19] MEDS: HYDROcodone 5MG/APAP 325MG 1 EA TAB PO PRN (03:47)
[2019-05-19] MEDS ORDERED: SODIUM CHLORIDE 0.9% 250ML 250 ML ONE (04:24)
[2019-05-19] MEDS ORDERED: VANCOMYCIN HCL INJ 500 MG VIAL ONE (04:24)
[2019-05-19] MEDS ORDERED: VANCOMYCIN HCL INJ 1,000 MG VIAL IVPB ONE (04:25)
[2019-05-19] MEDS: VANCOMYCIN HCL INJ 1,000 MG, VANCOMYCIN HCL INJ 250 MG in SODIUM CHLORIDE 0.9% 250ML 25... IVPB SCH (04:27)
[2019-05-19] MEDS: ASPIRIN (ENTERIC COATED) 81 MG TAB PO SCH (09:28)
[2019-05-19] MEDS: amLODIPine BESYLATE 5 MG TAB PO SCH (09:29)
[2019-05-19] MEDS: PANTOPRAZOLE SODIUM IV 40 MG VIAL IV SCH (11:27)
[2019-05-19] MEDS ORDERED: cefTRIAXone SODIUM 1 GM VIAL ONE (11:27)
[2019-05-19] MEDS ORDERED: SODIUM CHL 0.9% 50ML MIN-BAG+ 50 ML IVPB ONE (11:27)
[2019-05-19] MEDS: cefTRIAXone SODIUM 1 GM in SODIUM CHL 0.9% 50ML MIN-BAG+ 50 ML IVPB SCH (12:09)
[2019-05-19 13:32] VITALS: BP 130/78; TEMP 98.2
--- NOTE | 2019-05-21 10:05 | DS ---
SUPERVISING PHYSICIAN: Javy Kumar MD DISCHARGE DIAGNOSIS: 1. Sepsis related to right axilla cellulitis. His heart rate on admission was 101 and his WBCs were 12,600. He is presently on vancomycin. 2. Abscess under right axilla status post I&D, postoperative day #2, performed by Dr. Javy Camejo, general surgeon. 3. Brief episode of unresponsiveness with questionable transient ischemic attack with his brain MRI showing negative for acute ischemia. 4. Carotid stenosis at upper limits of normal, mostly on the left side. He will need vascular consult. 5. Hypertension. 6. Elevated liver enzymes, uncertain etiology. 7. Reported throat cancer that has not been treated. 8. Leukocytosis without a left shift, most likely secondary to #1, resolved. HISTORY OF PRESENT ILLNESS: This is a 63-year-old male patient who presented to the Emergency Room for the second time in two days with an episode of what was described as unresponsive by his son. He tried to wake him up and was unable to. He thought his dad was unresponsive for approximately 15 to 20 minutes until EMS got to the Emergency Room, at which time he was at normal baseline levels. There is no history of seizures. He was not post ictal. Blood sugar was within normal limits. Vital signs were also within normal limits. There was some concern that the patient may have been taking his Cymbalta more than normal as there were approximately 10 to 12 pills missing from his bottle as well as some missing gabapentin. In the Emergency Room, he was found to be alert and oriented without any distress, no focal motor deficits, just reporting to be tired. On his previous visit to the Emergency Room, he had I&D of a right axillary abscess and started on Bactrim. Wound cultures were done at that time. His white count on admission was 12,600. Chemistries showed just a mildly low potassium at 3.0, otherwise all other electrolytes were within normal limits. Creatinine 0.63. Liver functions showed some elevation with bilirubin 1.3 with AST, ALT and alkaline phosphatase all slightly elevated. The patient did endorse he had had some issues with elevation of his liver enzymes in the past, but did not know why and had not been worked up for any liver issues. He denied drinking any significant amount of alcohol, but does take Motrin for pain. Troponin was less than 0.02. Urinalysis showed just a trace of leukocyte esterase, 4 urobilinogen. Microscopic revealed 0 RBCs, 3 to 5 WBCs, no epithelials, rare bacteria. He did have a toxicology screen that was negative for all substances tested. CT of the head in the Emergency Room prior to admission showed a very questionable tiny focus of hemorrhage in the left parietal lobe that may represent a small benign calcification. Chest x-ray per radiologic interpretation showed no acute findings. Initially, there was concern that the patient had had a questionable transient ischemic attack. He was initially placed in Observation for continued evaluation neurologically and close monitoring overnight. He was placed in Observation in stable condition. HOSPITAL COURSE: He had telemetry monitoring and neuro checks. There was a soft tissue ultrasound of the right axilla to assess whether there were still some pockets that needed to be drained. Dr. Javy Camejo, general surgeon, was consulted due to the abscess. There was also an MRI of the brain, echocardiogram and carotid ultrasound also ordered. Home medications were restarted. It was found that the soft tissue lesions of the right axilla represented focal cellulitis. There was no vascularity. There were two lesions, the largest of which was 2.3 cm. Neurologically, there was found to be no evidence of stroke and his carotid artery sonogram was upper limits of normal. His admission status was changed from observation to inpatient as the patient was deemed to have sepsis related to the cellulitis and was placed on vancomycin. Sensitivities of the wound culture were resulted and showed MRSA. It was resistant to Bactrim, but was sensitive to vancomycin, so that will be continued. He was taken to surgery by Dr. Javy Camejo and had an I&D of the right axilla abscesses and they were packed. The patient did well intraoperatively and there were no complications postoperatively. His laboratory normalized. His vital signs were stable. His wound cultures also have a sensitivity to doxycycline and he will be discharged home today in stable condition. LABORATORY: He came in with a WBC of 12,600 and stabilized down to 6,600. Hemoglobin and hematocrit remained at 15 and 43.7. Sodium remained normal starting to 135 and prior to admission was 136. He did have low potassium at times and was given supplementation. The day prior to discharge, his potassium was 4. Chloride was stable at 102. Carbon dioxide 24. BUN 15, creatinine 0.69. Magnesium 1.9, calcium 8.4. AST 73 on admission. It went down to 58 and is up to 85. ALT on admission was 120, went down to 96 and is up to 107. Alkaline phosphatase was 141, went down to 121 and now is 124. Cardiac enzymes were negative. MICROBIOLOGY: Wound culture showed MRSA and was sensitive to vancomycin and doxycycline. RADIOLOGY: Head CT and chest x-ray are per the history of present illness. His brain MRI shows 1) White matter lesions in the bilateral centrum semiovale and lugo radiata as well as the subcortical white matter in bilateral cerebral hemispheres. No diffusion restriction, no hemorrhage, no cerebral edema. Most likely related to aging and/or cerebral microvascular disease. No evidence of acute or subacute significant cerebral edema or infarction. 2) Minimal chronic paranasal sinusitis. His carotid artery ultrasound showed 1) Doppler evaluation of the bilateral carotid systems and vertebral arteries shows no hemodynamically significant stenoses in the left CCA bulb/ICA, but grayscale measurements are just below the critical diameter stenoses of 70%. Consider correlation with neck CTA. 2) Moderate amount of plaque seen in the carotid arteries bilaterally. Bilateral vertebral arteries showed antegrade-cephalad flow. Soft tissue ultrasound of the axilla showed lesions near the right axilla are more likely to represent focal cellulitis and abscess. All the lesions are in the adipose tissue. Almost no vascularity. The largest lesion is 2.3 cm, and is the most superior. The more inferior lesion is the smallest, more fluid, and measuring only 6 mm. Neck CTA shows left internal carotid artery calcified and noncalcified atherosclerotic plaque resulting in 50-69% stenosis. DISCHARGE PLAN: The patient will be discharged home in stable condition. He has a followup appointment with Dr. Javy Camejo on 05/21/19 at 9 AM. He also needs to followup with his primary care provider, Lizz Kennedy NP, within one to two weeks. He is to resume his previous diet and his previous medications. In addition to his routine medications, I have sent him on doxycycline and tramadol. He needs to get a GI consult for his elevated liver enzymes as well as a plan for a cardiovascular surgeon due to the carotids. He is to return to the hospital or followup with Dr. Camejo or Lizz Kennedy for any problems or complications. DISCHARGE MEDICATIONS: 1. Gabapentin. 2. Cymbalta. 3. Amlodipine. 4. Ranitidine. 5. Doxycycline. 6. Tramadol. #[id number] cc: Lizz Kennedy NP [facility]
== END 2019-05-19 12:55 | disposition home or self-care (01) | DRG 854 ==
LOC: ER 22:20 → MS 05-15 00:35 → OBSVTOIN 05-16 10:12
PROVIDERS: ADMIT Nurse Practitioner Family; ATTEND Nurse Practitioner Acute Care
PROC: B32G1ZZ Computerized Tomography (CT Scan) of Bilateral Vertebral Arteries using Low Osmolar Contrast (ICD-10-PCS; 2019-05-15)
PROC: B3281ZZ Computerized Tomography (CT Scan) of Bilateral Internal Carotid Arteries using Low Osmolar Contrast (ICD-10-PCS; 2019-05-15)
PROC: B3201ZZ Computerized Tomography (CT Scan) of Thoracic Aorta using Low Osmolar Contrast (ICD-10-PCS; 2019-05-15)
PROC: 0J960ZZ Drainage of Chest Subcutaneous Tissue and Fascia, Open Approach (ICD-10-PCS; 2019-05-17)
PROC: 0J960ZZ Drainage of Chest Subcutaneous Tissue and Fascia, Open Approach (ICD-10-PCS; 2019-05-17)
PROC: 0JB60ZZ Excision of Chest Subcutaneous Tissue and Fascia, Open Approach (ICD-10-PCS; principal; 2019-05-17 12:30)
DX: A41.02 Sepsis due to Methicillin resistant Staphylococcus aureus (principal); L03.111 Cellulitis of right axilla; L02.411 Cutaneous abscess of right axilla; G45.9 Transient cerebral ischemic attack, unspecified; I10 Essential (primary) hypertension; R74.8 Abnormal levels of other serum enzymes; C14.0 Malignant neoplasm of pharynx, unspecified; I65.22 Occlusion and stenosis of left carotid artery; G62.9 Polyneuropathy, unspecified; E87.6 Hypokalemia; K21.9 Gastro-esophageal reflux disease without esophagitis; Z16.29 Resistance to other single specified antibiotic; Z79.899 Other long term (current) drug therapy

== ENCOUNTER 2019-05-25 00:11 | Emergency (ER) | payer MEDICARE ==
--- NOTE | 2019-05-25 00:42 | ED.PDOC ---
History of Present Illness - General Chief Complaint: General Stated Complaint: nausea, seeing spots, high anxiety Time Seen by Provider: 05/25/19 00:18 Source: patient Exam Limitations: no limitations - History of Present Illness Initial Comments: Patient presents with left sided pain. He says it started tonight. It is making him anxious and light-headed. He says he had a benign tumor removed from that area several years ago. He was diagnosed with throat cancer one year ago but says that he has elected not to have it treated. He says that he also feels pain in his LUQ. His pain complaints are non-specific in regards to quality and modifying factors. He does have a non-productive cough that he noticed today. He has been having social issues regarding where he is going to be living. No other complaints. Timing/Duration: 1-3 hours Severity: mild Improving Factors: nothing Worsening Factors: nothing Associated Symptoms: other - as in HPI Allergies/Adverse Reactions: Allergies NO KNOWN ALLERGY Allergy (Verified 05/14/19 17:29) Home Medications: Ambulatory Orders Amlodipine Besylate 10 mg PO DAILY 05/14/19 DULoxetine HCL [Cymbalta] 30 mg PO BEDTIME 05/14/19 Gabapentin 400 mg PO Q4H 05/14/19 raNITIdine HCL [Zantac] 150 mg PO DAILY 05/14/19 Doxycycline Hyclate 100 mg PO BID #14 tab 05/19/19 Tramadol HCl 50 - 100 mg PO Q6HR PRN #40 tab 05/19/19 Review of Systems - Review of Systems Constitutional: States: no symptoms reported EENTM: States: no symptoms reported Respiratory: States: see HPI Cardiology: States: no symptoms reported Gastrointestinal/Abdominal: States: no symptoms reported Genitourinary: States: no symptoms reported Musculoskeletal: States: see HPI Skin: States: no symptoms reported Neurological: States: no symptoms reported Endocrine: States: no symptoms reported Hematologic/Lymphatic: States: no symptoms reported Past Medical History (General) - Patient Medical History Hx Seizures: No Hx Stroke: No Hx Dementia: No Hx Asthma: Yes Hx of COPD: No Hx Cardiac Disorders: Yes Hx Congestive Heart Failure: No Hx Pacemaker: No Hx Hypertension: Yes Hx Thyroid Disease: No Hx Diabetes: No Hx Gastroesophageal Reflux: Yes Hx Renal Disease: No Hx Cancer: Yes - throat ca refuses tx, Hx of HIV: No Hx Hepatitis C: No Hx MRSA: No - Vaccination History Hx Tetanus, Diphtheria Vaccination: No Hx Influenza Vaccination: Yes Hx Pneumococcal Vaccination: No Immunizations Up to Date: Yes - Social History Hx Tobacco Use: No Hx Alcohol Use: No Hx Substance Use: No Hx Substance Use Treatment: No Hx Depression: No Feels Threatened In Home Enviroment: No Feels Threatened In a Relationship: No Hx Physical Abuse: No Hx Emotional Abuse: No Hx Suspected Abuse: No - Activities of Daily Living Hospice Agency (if applicable):: None - Female History Patient is a Female of Child Bearing Age (10 -59 yrs old): No Family Medical History - Family History Father Family History: Unknown Living Status: Hx Family Cancer: Yes Mother Living Status: Cause of : Grief Physical Exam - Physical Exam General Appearance: Alert Eye Exam: bilateral normal Ears, Nose, Throat: normal ENT inspection Neck: non-tender, full range of motion, supple Respiratory: lungs clear, normal breath sounds Cardiovascular/Chest: normal peripheral pulses, regular rate, rhythm Gastrointestinal/Abdominal: normal bowel sounds, non tender, soft Back Exam: normal inspection, no CVA tenderness Extremity: normal range of motion, non-tender, normal inspection 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, no motor/sensory deficits, alert, normal mood/affect, oriented x 3 Skin Exam: normal color Lymphatic: no adenopathy Progress - Progress Progress: 05/25/19 03:17 Laboratory Tests 05/25/19 05/25/19 05/25/19 00:43 00:43 00:43 WBC 9.6 RBC 4.33 L Hgb 14.9 Hct 43.2 MCV 99.8 H MCH 34.5 H MCHC 34.6 RDW 13.7 Plt Count 259 MPV 7.8 Absolute Neuts (auto) 4.80 Absolute Lymphs (auto) 3.60 H Absolute Monos (auto) 1.10 H Absolute Eos (auto) 0.10 Absolute Basos (auto) 0.10 Neutrophils % 49.8 Lymphocytes % 37.4 Monocytes % 11.3 H Eosinophils % 0.7 L Basophils % 0.8 PT 9.9 INR 0.99 PTT (SP) 24.9 Sodium 138 Potassium 3.3 L Chloride 106 Carbon Dioxide 22 Anion Gap 13.3 BUN 17 Creatinine 0.92 BUN/Creatinine Ratio 18.5 Random Glucose 93 Serum Osmolality 276.9 Calcium 9.4 Magnesium Total Bilirubin 0.9 AST 76 H ALT 122 H Alkaline Phosphatase 122 H Creatine Kinase 128 CK-MB (CK-2) 2.2 CK-MB (CK-2) % Not Reportable Troponin I < 0.02 B-Natriuretic Peptide Serum Total Protein 7.7 Albumin 3.8 Globulin 3.9 H Albumin/Globulin Ratio 1.0 L TSH Thyroxine (T4) Urine Color Urine Appearance Urine pH Ur Specific Alfred Urine Protein Urine Glucose (UA) Urine Ketones Urine Blood Urine Nitrite Urine Bilirubin Urine Urobilinogen Ur Leukocyte Esterase Urine RBC Urine WBC Ur Epithelial Cells Calcium Oxalate Crystal Urine Bacteria Urine Mucus Urine Opiates Screen Urine Barbiturates Ur Phencyclidine Scrn U Amphetamin/Meth Scrn U Benzodiazepines Scrn U Cocaine Metab Screen U Cannabinoids Screen 05/25/19 05/25/19 05/25/19 00:44 00:45 00:45 WBC RBC Hgb Hct MCV MCH MCHC RDW Plt Count MPV Absolute Neuts (auto) Absolute Lymphs (auto) Absolute Monos (auto) Absolute Eos (auto) Absolute Basos (auto) Neutrophils % Lymphocytes % Monocytes % Eosinophils % Basophils % PT INR PTT (SP) Sodium Potassium Chloride Carbon Dioxide Anion Gap BUN Creatinine BUN/Creatinine Ratio Random Glucose Serum Osmolality Calcium Magnesium 1.8 Total Bilirubin AST ALT Alkaline Phosphatase Creatine Kinase CK-MB (CK-2) CK-MB (CK-2) % Troponin I B-Natriuretic Peptide 7.6 Serum Total Protein Albumin Globulin Albumin/Globulin Ratio TSH 1.82 Thyroxine (T4) 10.26 Urine Color Urine Appearance Urine pH Ur Specific Alfred Urine Protein Urine Glucose (UA) Urine Ketones Urine Blood Urine Nitrite Urine Bilirubin Urine Urobilinogen Ur Leukocyte Esterase Urine RBC Urine WBC Ur Epithelial Cells Calcium Oxalate Crystal Urine Bacteria Urine Mucus Urine Opiates Screen Positive H Urine Barbiturates Negative Ur Phencyclidine Scrn Negative U Amphetamin/Meth Scrn Negative U Benzodiazepines Scrn Negative U Cocaine Metab Screen Negative U Cannabinoids Screen Negative 05/25/19 01:35 WBC RBC Hgb Hct MCV MCH MCHC RDW Plt Count MPV Absolute Neuts (auto) Absolute Lymphs (auto) Absolute Monos (auto) Absolute Eos (auto) Absolute Basos (auto) Neutrophils % Lymphocytes % Monocytes % Eosinophils % Basophils % PT INR PTT (SP) Sodium Potassium Chloride Carbon Dioxide Anion Gap BUN Creatinine BUN/Creatinine Ratio Random Glucose Serum Osmolality Calcium Magnesium Total Bilirubin AST ALT Alkaline Phosphatase Creatine Kinase CK-MB (CK-2) CK-MB (CK-2) % Troponin I B-Natriuretic Peptide Serum Total Protein Albumin Globulin Albumin/Globulin Ratio TSH Thyroxine (T4) Urine Color Dk yellow Urine Appearance Clear Urine pH 6.0 Ur Specific Alfred >= 1.030 Urine Protein Trace Urine Glucose (UA) Negative Urine Ketones Trace Urine Blood Negative Urine Nitrite Negative Urine Bilirubin Negative Urine Urobilinogen 1.0 Ur Leukocyte Esterase Negative Urine RBC 1-3 Urine WBC 0-1 Ur Epithelial Cells 0 Calcium Oxalate Crystal 1+ Urine Bacteria Rare Urine Mucus Small Urine Opiates Screen Urine Barbiturates Ur Phencyclidine Scrn U Amphetamin/Meth Scrn U Benzodiazepines Scrn U Cocaine Metab Screen U Cannabinoids Screen CTA chest and CT ab/pelvis showed nothing acute and no explanation for the patient's symptoms. His potassium was 3.3. He said he just bought some bananas and was eating two per day. He was given potassium chloride 20 meq po here. He was very anxious about his life events. He was given Ativan 0.5 mg IV x one and he called for a ride home. He was instructed to follow up with his pcp. Care instructions given. E.R. warnings given. Questions were elicited and answered. Patient voiced understanding and agreement with the plan. Departure - Departure Clinical Impression: Side pain, Anxiety, Hypokalemia Disposition: Discharge to Home or Self Care Condition: Good Departure Forms: ED Discharge - Pt. Copy, Patient Portal Self Enrollment Instructions: High Potassium Diet, Anxiety, Adult (DC) Diet: other - as per your regular doctor Activity: increase activity as tolerated Referrals: Lizz Kennedy NP [Primary Care Provider] - 1-2 Weeks Home Medications: Ambulatory Orders Amlodipine Besylate 10 mg PO DAILY 05/14/19 DULoxetine HCL [Cymbalta] 30 mg PO BEDTIME 05/14/19 Gabapentin 400 mg PO Q4H 05/14/19 raNITIdine HCL [Zantac] 150 mg PO DAILY 05/14/19 Doxycycline Hyclate 100 mg PO BID #14 tab 05/19/19 Tramadol HCl 50 - 100 mg PO Q6HR PRN #40 tab 05/19/19 Additional Instructions: Follow up with your regular doctor regarding your low potassium and anxiety. Return to the E.R. for worsening symptoms.
--- NOTE | 2019-05-25 01:27 | RAD ---
EXAM: XR Chest, 2 Views CLINICAL HISTORY: The patient is 63 years old and is Male; cough TECHNIQUE: Frontal and lateral views of the chest. COMPARISON: Chest radiograph May 14, 2019. FINDINGS: LUNGS: Unremarkable. No consolidation. PLEURAL SPACE: Unremarkable. No pneumothorax. HEART: Unremarkable. No cardiomegaly. MEDIASTINUM: Unremarkable. BONES/JOINTS: Healed right-sided rib fractures are present. IMPRESSION: No acute cardiopulmonary process. Electronically signed by: Anai Kelly MD 05/25/2019 1:26 AM CDT
[2019-05-25 01:43] VITALS: O2SAT 96
[2019-05-25] MEDS ORDERED: KETOROLAC TROMETHAMINE INJ 30 MG/ML VIAL IV ONE (01:57)
[2019-05-25] MEDS ORDERED: KETOROLAC TROMETHAMINE INJ 30 MG/ML VIAL ONE (01:58)
--- NOTE | 2019-05-25 02:58 | CT ---
EXAM: CT Abdomen and Pelvis With Intravenous Contrast CLINICAL HISTORY: The patient is 63 years old and is Male; elevated LFTs, history of throat CA, side pain, TECHNIQUE: Axial computed tomography images of the abdomen and pelvis with intravenous contrast. Sagittal and coronal reformatted images were created and reviewed. This CT exam was performed using one or more of the following dose reduction techniques: automated exposure control, adjustment of the mA and/or kV according to patient size, and/or use of iterative reconstruction technique. COMPARISON: No relevant prior studies available. FINDINGS: LUNG BASES: Unremarkable. No mass. No consolidation. ABDOMEN: LIVER: Unremarkable. No mass. GALLBLADDER AND BILE DUCTS: No calcified stones. No ductal dilation. PANCREAS: The pancreas is atrophic. SPLEEN: Several splenic granuloma are present. ADRENALS: Unremarkable. No mass. KIDNEYS AND URETERS: Several right intrarenal calcifications are present. The kidneys enhance symmetrically. No obstructing renal or ureteral calculus is seen. STOMACH AND BOWEL: The stomach is decompressed. The small bowel is normal in caliber. A moderate amount of stool is present throughout colon. There is no mucosal thickening or evidence of bowel obstruction. PELVIS: APPENDIX: No findings to suggest acute appendicitis. BLADDER: The bladder is not well distended. Bilateral thickening is noted. REPRODUCTIVE: Unremarkable as visualized. ABDOMEN and PELVIS: INTRAPERITONEAL SPACE: Unremarkable. No free air. No significant fluid collection. BONES/JOINTS: Multilevel degenerative change of the spine is present. Chronic fracture of T12 is present. SOFT TISSUES: The soft tissues are normal. VASCULATURE: Atherosclerosis of the vasculature is present. No abdominal aortic aneurysm. LYMPH NODES: Unremarkable. No enlarged lymph nodes. IMPRESSION: 1. No acute findings on this contrasted CT of the abdomen and pelvis to explain the patient's symptoms. 2. Lateral wall thickening which may be secondary to incomplete distention. Electronically signed by: Anai Kelly MD 05/25/2019 2:57 AM CDT
--- NOTE | 2019-05-25 03:06 | CT ---
EXAM: CT Chest With Intravenous Contrast CLINICAL HISTORY: The patient is 63 years old and is Male; HX OF THROAT CA TECHNIQUE: Axial computed tomography images of the chest with intravenous contrast. Sagittal and coronal reformatted images were created and reviewed. This CT exam was performed using one or more of the following dose reduction techniques: automated exposure control, adjustment of the mA and/or kV according to patient size, and/or use of iterative reconstruction technique. COMPARISON: CTA neck from 05/15/2019 FINDINGS: LUNGS: No acute findings visualized. No mass. No consolidative infiltrate. PLEURAL SPACE: No significant effusion. No pneumothorax. HEART: Coronary artery calcifications. No cardiomegaly. No pericardial effusion. BONES/JOINTS: There is a fracture of the T12 vertebral body with severe vertebral body height loss centrally. There is also mild retropulsion and associated mild spinal canal stenosis at this level. This is favored to be subacute or chronic. There is a small nonspecific sclerotic focus in the superior aspect of the T6 vertebral body. Mild degenerative changes also noted in the spine. SOFT TISSUES: No significant abnormalities visualized in the superficial soft tissues. VASCULATURE: Atherosclerotic calcifications. Aberrant right subclavian artery. No aortic aneurysm or dissection. Few small paraesophageal varices are noted. LYMPH NODES: Calcified left hilar lymph nodes visualized. No significant lymph node enlargement. SPLEEN: Calcified granulomas in the spleen. There is also a small nonspecific focus of increased in density in the anterior aspect of the spleen. IMPRESSION: 1. No acute findings visualized in the chest. 2. Fracture of the T12 vertebral body with severe vertebral body height loss centrally. There is also mild retropulsion. There is no prevertebral soft tissue swelling and this is favored to be subacute or chronic. Recommend clinical correlation. Electronically signed by: Rachael Florence MD 05/25/2019 3:04 AM CDT
[2019-05-25] MEDS ORDERED: POTASSIUM CHLORIDE 20 MEQ TAB ONE (03:17)
[2019-05-25] MEDS ORDERED: POTASSIUM CHLORIDE 20 MEQ TAB PO ONE (03:25)
[2019-05-25 03:49] VITALS: BP 173/103; TEMP 97.4
== END 2019-05-25 03:45 | disposition home or self-care (01) ==
LOC: ER 00:11
DX: R10.12 Left upper quadrant pain (principal); F41.9 Anxiety disorder, unspecified; E87.6 Hypokalemia; K21.9 Gastro-esophageal reflux disease without esophagitis; J45.909 Unspecified asthma, uncomplicated; I51.9 Heart disease, unspecified; I10 Essential (primary) hypertension; C14.0 Malignant neoplasm of pharynx, unspecified; Z79.899 Other long term (current) drug therapy
CPT/HCPCS: 71046; 71260; 74177; 80053; 80307; 81001; 82550; 82553; 83735; 83880; 84436; 84443; 84484; 85025; 85610; 85730; 93005; J1885; J2060

== ENCOUNTER 2019-05-31 15:21 | Emergency (ER) | payer MEDICARE ==
[2019-05-31] MEDS: NITROGLYCERIN 2% 1 GM UD TOP ONE (15:39)
[2019-05-31] MEDS: ASPIRIN (CHEWABLE) 81 MG TAB PO ONE (15:39)
--- NOTE | 2019-05-31 15:39 | ED.PDOC ---
History of Present Illness - General Chief Complaint: Chest Pain/IA Stated Complaint: chest pain Time Seen by Provider: 05/31/19 15:24 Source: patient Exam Limitations: no limitations - History of Present Illness Initial Comments: Patient presents with left sided chest pain for 45 minutes. He says that is it "tingling" in nature. Denies previous episodes. He had dyspnea when it started but not upon presentation. No cardiac history. No history of tobacco use. He was diagnosed with "throat cancer" one year ago but has elected not to have it treated. He has a chronic cough that he says has been going on for "years". No other complaints. Timing/Duration: other - 45 minutes Severity: mild Improving Factors: nothing Worsening Factors: nothing Associated Symptoms: other - as in HPI Allergies/Adverse Reactions: Allergies NO KNOWN ALLERGY Allergy (Verified 05/31/19 16:05) Home Medications: Ambulatory Orders Amlodipine Besylate 10 mg PO DAILY 05/14/19 DULoxetine HCL [Cymbalta] 30 mg PO BEDTIME 05/14/19 Gabapentin 400 mg PO Q4H 05/14/19 raNITIdine HCL [Zantac] 150 mg PO DAILY 05/14/19 Doxycycline Hyclate 100 mg PO BID #14 tab 05/19/19 Tramadol HCl 50 - 100 mg PO Q6HR PRN #40 tab 05/19/19 Review of Systems - Review of Systems Constitutional: States: no symptoms reported EENTM: States: no symptoms reported Respiratory: States: see HPI Cardiology: States: see HPI Gastrointestinal/Abdominal: States: no symptoms reported Genitourinary: States: no symptoms reported Musculoskeletal: States: no symptoms reported Skin: States: no symptoms reported Neurological: States: no symptoms reported Endocrine: States: no symptoms reported Hematologic/Lymphatic: States: no symptoms reported Past Medical History (General) - Patient Medical History Hx Seizures: No Hx Stroke: No Hx Dementia: No Hx Asthma: Yes Hx of COPD: No Hx Cardiac Disorders: Yes Hx Congestive Heart Failure: No Hx Pacemaker: No Hx Hypertension: Yes Hx Thyroid Disease: No Hx Diabetes: No Hx Gastroesophageal Reflux: Yes Hx Renal Disease: No Hx Cancer: Yes - throat ca refuses tx, Hx of HIV: No Hx Hepatitis C: No Hx MRSA: No - Vaccination History Hx Tetanus, Diphtheria Vaccination: No Hx Influenza Vaccination: Yes Hx Pneumococcal Vaccination: No - Social History Hx Tobacco Use: No Hx Alcohol Use: No Hx Substance Use: No Hx Substance Use Treatment: No Hx Depression: No Hx Physical Abuse: No Hx Emotional Abuse: No Hx Suspected Abuse: No Family Medical History - Family History Father Family History: Unknown Living Status: Hx Family Cancer: Yes Mother Living Status: Cause of : Grief Physical Exam - Physical Exam General Appearance: Alert Eye Exam: bilateral normal Ears, Nose, Throat: normal ENT inspection Neck: non-tender, full range of motion, supple Respiratory: lungs clear, normal breath sounds Cardiovascular/Chest: normal peripheral pulses, regular rate, rhythm Gastrointestinal/Abdominal: normal bowel sounds, non tender, soft Back Exam: normal inspection, no CVA tenderness Extremity: normal range of motion, non-tender, normal inspection Neurologic: no motor/sensory deficits, alert, normal mood/affect, oriented x 3 Skin Exam: normal color Lymphatic: no adenopathy Progress - Progress Progress: 05/31/19 19:15 Laboratory Tests 05/31/19 05/31/19 05/31/19 15:37 15:37 18:40 WBC 8.5 RBC 4.07 L Hgb 14.4 Hct 40.7 L MCV 99.9 H MCH 35.3 H MCHC 35.3 RDW 13.2 Plt Count 254 MPV 7.6 Absolute Neuts (auto) 4.30 Absolute Lymphs (auto) 3.10 Absolute Monos (auto) 0.90 H Absolute Eos (auto) 0.10 Absolute Basos (auto) 0.10 Neutrophils % 50.7 Lymphocytes % 36.1 Monocytes % 11.0 H Eosinophils % 1.2 Basophils % 1.0 PT 9.5 INR 0.95 PTT (SP) 24.0 Sodium 138 Potassium 3.3 L Chloride 105 Carbon Dioxide 21 Anion Gap 15.3 BUN 18 Creatinine 0.85 BUN/Creatinine Ratio 21.2 H Random Glucose 114 H Serum Osmolality 278.4 Calcium 8.9 Magnesium 1.9 Creatine Kinase 148 CK-MB (CK-2) 3.0 CK-MB (CK-2) % Not Reportable Troponin I < 0.02 < 0.02 B-Natriuretic Peptide 8.9 EKG at presentation showed NSR with no ST changes nor T wave inversions. No LBBB. Troponins x 2 negative. Three hour EKG showed NSR with no ST changes nor T wave inversions. No LBBB. Patient did not express any symptoms about 15 minutes after arrival. He slept during most of his E.R. visit. When his family was here to see him, he became anxious and cried. When they left, he had no symptoms and slept. This is not likely cardiac. The patient is likely having anxiety. He was seen here last week and requested something for anxiety. Patient was instructed to see his regular doctor regarding treatment for anxiety. He was also instructed to ask his pcp about a stress test. Care instructions given. E.R. warnings given. Questions were elicited and answered. Patient voiced understanding and agreement with the plan. Departure - Departure Clinical Impression: Anxiety, Chest pain Disposition: Discharge to Home or Self Care Condition: Good Departure Forms: ED Discharge - Pt. Copy, Patient Portal Self Enrollment Instructions: DI for Chest Pain, Anxiety, Adult (DC) Diet: resume usual diet Activity: increase activity as tolerated Referrals: Lizz Kennedy, [employer] [Primary Care Provider] - 1-2 Weeks Home Medications: Ambulatory Orders Amlodipine Besylate 10 mg PO DAILY 05/14/19 DULoxetine HCL [Cymbalta] 30 mg PO BEDTIME 05/14/19 Gabapentin 400 mg PO Q4H 05/14/19 raNITIdine HCL [Zantac] 150 mg PO DAILY 05/14/19 Doxycycline Hyclate 100 mg PO BID #14 tab 05/19/19 Tramadol HCl 50 - 100 mg PO Q6HR PRN #40 tab 05/19/19 Additional Instructions: See your regular doctor about possible anxiety. You should also ask about getting a cardiac stress test. Return to the E.R. for worsening chest pain or shortness of breath.
--- NOTE | 2019-05-31 15:44 | RAD ---
EXAM DESCRIPTION: Chest,1 View CLINICAL HISTORY: chest pain COMPARISON: 14 May 2019 TECHNIQUE: AP portable chest FINDINGS: The lungs are clear. There is no infiltrate or effusion. The heart is normal size. IMPRESSION: Normal portable chest Electronically signed by: Jesse Mcnally MD 05/31/2019 3:37 PM CDT
[2019-05-31 16:05] VITALS: TEMP 98.4
[2019-05-31 19:47] VITALS: BP 127/90; O2SAT 96
== END 2019-05-31 19:48 | disposition home or self-care (01) ==
LOC: ER 15:21
DX: R07.9 Chest pain, unspecified (principal); F41.9 Anxiety disorder, unspecified; C14.0 Malignant neoplasm of pharynx, unspecified; J45.909 Unspecified asthma, uncomplicated; I51.9 Heart disease, unspecified; I10 Essential (primary) hypertension; K21.9 Gastro-esophageal reflux disease without esophagitis; Z79.899 Other long term (current) drug therapy

== ENCOUNTER → 2019-06-11 | Outpatient (CLI) | payer MEDICARE ==
--- NOTE | 2019-06-11 18:38 | US ---
EXAM DESCRIPTION: Soft Tissue,Extremity: ULTRASOUND. CLINICAL HISTORY: 63 years Male PN IN AXILLA. Right. COMPARISON: None Available. TECHNIQUE: Transcutaneous scanning: Inman-scale and Doppler modes. FINDINGS: Scanning of the right axilla. No dominant soft tissue mass or distinct cyst. No parenchymal edema or large calcifications. Overlying skin changes. No enlarged lymph nodes. IMPRESSION: No ultrasound abnormality in the right axilla corresponding to patient's region of pain. Electronically signed by: Angel Luis Glass MD 06/11/2019 6:37 PM CDT
== END ==
LOC: LAB.O 15:15
PROVIDERS: ATTEND Nurse Practitioner Family
DX: M79.621 Pain in right upper arm (principal)

== ENCOUNTER → 2019-06-26 | Outpatient (CLI) | payer OTHER ==
--- NOTE | 2019-06-26 16:33 | US ---
EXAM DESCRIPTION: Venous,Lower Extremity LT CLINICAL HISTORY: LOCALIZED EDEMA LEFT COMPARISON: None Available. TECHNIQUE: Left lower extremity venous duplex FINDINGS: Doppler evaluation of the left lower extremity deep veins was performed. Normal color flow is seen in the common femoral, superficial femoral, profunda femoral and greater saphenous veins. Normal flow is seen in the popliteal vein and veins below the knee in the calf. Normal venous compressibility and flow augmentation. IMPRESSION: Negative for evidence of deep venous thrombosis on left lower extremity venous Doppler sonogram. Electronically signed by: Jan Moon MD 06/26/2019 4:31 PM CDT
--- NOTE | 2019-06-26 16:52 | RAD ---
EXAM DESCRIPTION: Foot,Left 3 Views CLINICAL HISTORY: 63 years, Male, PAIN IN LEFT FOOT COMPARISON: None TECHNIQUE: AP, lateral, and oblique views of the left foot FINDINGS: Abnormally rotated appearance of the distal end of the medial cuneiform and proximal end of the first metatarsal findings suggest chronic degenerative change or neuropathic joint. Linear lucency in the lateral aspect of the distal half of the first cuneiform may be a subtle fracture line. Mild degenerative narrowing at the first metatarsal phalangeal joint. Lateral view shows intact appearance of the talus and calcaneus. Degenerative spurring at the anterior ankle joint. Lucency in the calcaneus may be an old screw hole. Small plantar calcaneal enthesophyte. Degenerative spurring at the dorsal midfoot. 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 See above. Electronically signed by: Jan Moon MD 06/26/2019 4:51 PM CDT
== END ==
LOC: LAB.O 15:37
PROVIDERS: ATTEND Nurse Practitioner Family
DX: M19.072 Primary osteoarthritis, left ankle and foot (principal); R60.0 Localized edema

== ENCOUNTER → 2019-07-04 | Outpatient (CLI) | payer MEDICARE, OTHER ==
--- NOTE | 2019-07-05 17:13 | US ---
EXAM DESCRIPTION: Liver: ULTRASOUND. CLINICAL HISTORY: ABNORMAL LIVER ENZYMES COMPARISON: CT abdomen and pelvis with IV contrast 05/25/2019. TECHNIQUE: Transabdominal scannin-dimensional and Doppler modes. Groin difficult study due to increased intestinal gas. Large patient body habitus. FINDINGS: Gallbladder: Normal size with minimal sludge. No stones. No fluid around the gallbladder. No wall thickening. 2.4 mm. Non-tender with transducer pressure. Common bile duct: caliber 3.9 mm within normal limits. Liver: Increased echogenicity; contour liver capsule smooth where seen. No fluid around the liver. Intrahepatic biliary ducts normal caliber. Doppler hepatopedal flow portal vein. Less than 1 cm. Long axis right lobe 15.2 cm. Pancreas: Obscured by intestinal gas. Duct not seen. Right kidney: long axis measures 9.9 x 5.9 x 6.1 cm. Normal cortical echogenicity. Normal cortical thickness. Multiple echogenic stones with acoustic shadowing. Largest stones measure 9.7 and 7.2 mm. No hydronephrosis. Proximal ureter not seen. IMPRESSION: 1. Gallbladder with sludge but no stones. Normal wall thickness with no fluid. Nontender with transducer pressure. Common bile duct normal caliber. No ascites. 2. Fatty liver normal size. Normal vascularity and ducts. Smooth capsule with no ascites. Pancreas obscured by intestinal gas. 3. Nephrolithiasis of the right kidney with largest stones measuring 9.7 and 7.2 mm. No hydronephrosis. Proximal ureter not seen. Electronically signed by: Angel Luis Glass MD 07/05/2019 5:12 PM CDT
== END ==
LOC: US 10:30
PROVIDERS: ATTEND Nurse Practitioner Family
DX: R74.8 Abnormal levels of other serum enzymes (principal); K76.0 Fatty (change of) liver, not elsewhere classified; N20.0 Calculus of kidney

== ENCOUNTER 2019-07-18 12:23 | Emergency (ER) | payer OTHER ==
[2019-07-18] MEDS: ONDANSETRON ODT 8 MG TAB SL ONE (13:43)
[2019-07-18] MEDS: HYDROcodone 7.5MG/APAP 325MG 1 EA TAB PO ONE (13:43)
[2019-07-18] MEDS: SODIUM CHLORIDE 0.9% 1000ML 1,000 ML IVS ONE (14:07)
[2019-07-18] MEDS: KETOROLAC TROMETHAMINE INJ 30 MG/ML VIAL IV ONE (14:09)
--- NOTE | 2019-07-18 14:30 | US ---
EXAM DESCRIPTION: Gall Bladder: ULTRASOUND. CLINICAL HISTORY: ruq pain COMPARISON: Ultrasound liver 07/04/2019. CT abdomen and pelvis May 2019. TECHNIQUE: Transabdominal scanning: Inman-scale and Doppler modes. FINDINGS: Gallbladder: normal size, shape, echogenicity; no intraluminal stones or sludge. No fluid around the gallbladder. No wall thickening. 1.9 mm. Non-tender with transducer pressure. Common bile duct: caliber 4.4 mm within normal limits. Liver: Heterogeneously increased echogenicity; contour liver capsule smooth where seen. No fluid around the liver. Intrahepatic biliary ducts normal caliber. Doppler hepatopedal flow portal vein.. Long axis right lobe 14.6 cm. Pancreas: Obscured by intestinal gas. Duct not seen Aorta: 1.7 cm diameter. Right kidney: 10.6 cm long axis. Normal cortical thickness and echogenicity. No hydronephrosis.. IMPRESSION: 1. Heterogeneous mild steatosis liver. No other abnormalities. 2. Gallbladder, ducts, right kidney, negative. Normal caliber of the proximal aorta. No ascites. Electronically signed by: Angel Luis Glass MD 07/18/2019 2:28 PM CDT
[2019-07-18] MEDS: MAGNESIUM HYDROXIDE 30 ML UD PO ONE (14:48)
--- NOTE | 2019-07-18 15:03 | ED.PDOC ---
History of Present Illness - General Chief Complaint: Abdominal Pain Stated Complaint: right sided abdominal pain Time Seen by Provider: 07/18/19 12:42 Source: patient Exam Limitations: no limitations - History of Present Illness Initial Comments: the patient is 63-year-old male presenting to the emergency room secondary to right upper abdominal pain present for the last month and a half to 2 months but has gotten worse over the last 2 days. No nausea vomiting or diarrhea. Pain is worse with palpation. No rebound or definite peritoneal signs. No syncope or near-syncope. No definite palpable mass. The patient is scheduled to have his gallbladder out in about 2 weeks. Oral intake has been normal. No diarrhea or constipation according to him. Pain is rated at about a 6 or 7 out of 10. No fever. No history of diverticulitis according to him. No history of pancreatitis according to him. Looking back over his records he is always carried a mild elevation of his liver enzymes. No trauma. No bruising. Timing/Duration: unsure Severity: moderate Improving Factors: nothing Worsening Factors: nothing Associated Symptoms: denies symptoms Allergies/Adverse Reactions: Allergies NO KNOWN ALLERGY Allergy (Verified 05/31/19 16:05) Home Medications: Ambulatory Orders Amlodipine Besylate 10 mg PO DAILY 05/14/19 Gabapentin 600 mg PO TID 05/14/19 Aspirin [Aspirin Adult Low Dose] 81 mg PO DAILY 07/18/19 Ibuprofen 600 mg PO TID 07/18/19 Tramadol HCl 50 mg PO Q8HR PRN #20 tab 07/18/19 Review of Systems - Review of Systems Constitutional: States: no symptoms reported EENTM: States: no symptoms reported Respiratory: States: no symptoms reported Cardiology: States: no symptoms reported Gastrointestinal/Abdominal: States: see HPI Genitourinary: States: no symptoms reported Musculoskeletal: States: no symptoms reported Skin: States: no symptoms reported Neurological: States: no symptoms reported Endocrine: States: no symptoms reported All other Systems: No Change from Baseline Past Medical History (General) - Patient Medical History Hx Seizures: No Hx Stroke: Yes Hx Dementia: No Hx Asthma: Yes Hx of COPD: No Hx Cardiac Disorders: Yes Hx Congestive Heart Failure: No Hx Pacemaker: No Hx Hypertension: Yes Hx Thyroid Disease: No Hx Diabetes: No Hx Gastroesophageal Reflux: Yes Hx Renal Disease: No Hx Cancer: Yes - throat ca refuses tx, Hx of HIV: No Hx Hepatitis C: No Hx MRSA: No - Vaccination History Hx Tetanus, Diphtheria Vaccination: No Hx Influenza Vaccination: Yes Hx Pneumococcal Vaccination: No - Social History Hx Tobacco Use: No Hx Alcohol Use: No Hx Substance Use: No Hx Substance Use Treatment: No Hx Depression: No Hx Physical Abuse: No Hx Emotional Abuse: No Hx Suspected Abuse: No Family Medical History - Family History Father Family History: Unknown Living Status: Hx Family Cancer: Yes Mother Living Status: Cause of : Grief Physical Exam - Physical Exam General Appearance: Alert, Comfortable, No apparent distress Eye Exam: bilateral normal Ears, Nose, Throat: hearing grossly normal, normal ENT inspection Neck: full range of motion, supple Respiratory: lungs clear, normal breath sounds, no respiratory distress, no accessory muscle use Cardiovascular/Chest: normal peripheral pulses, no edema, other - regular rate Peripheral Pulses: radial,right: 2+, radial,left: 2+ Gastrointestinal/Abdominal: soft, other - [id number] right upper quadrant discomfort palpation. See history of present illness. Rectal Exam: deferred Back Exam: no CVA tenderness, no vertebral tenderness Extremity: non-tender, normal capillary refill, pedal edema - trace bilaterally, other - chronic changes related to his chronic disability Neurologic: cutter in II-XII nml as tested, alert, normal mood/affect, oriented x 3 Skin Exam: normal color Comments: Vital Signs - 24 hr 07/18/19 07/18/19 07/18/19 12:38 12:41 13:23 Temperature 99.0 F 99 F Pulse Rate [ 83 83 83 Pulse Ox] Respiratory 20 20 20 Rate Blood Pressure 147/87 147/87 125/84 [L Arm] O2 Sat by Pulse 98 98 99 Oximetry 07/18/19 14:09 Temperature Pulse Rate [ 75 Pulse Ox] Respiratory 20 Rate Blood Pressure 106/91 [L Arm] O2 Sat by Pulse 98 Oximetry Progress - Progress Progress: 07/18/19 15:07 the patient is a 63-year-old male presenting with right upper quadrant pain that is acute on chronic in nature. This is most consistent with biliary colic. I see no evidence of any significant obstruction or infection at this time. The patient was hydrated and was given some pain medications and is feeling somewhat better. He does need to keep his follow-up with his general surgeon to get his gallbladder out. ER warnings are given for any significant worsening. He will be written for tramadol for as needed use for pain control. he was given 1 dose of milk of magnesia in case mild constipation is contributing to his worsening of symptoms. arley [email or web address] - Results/Orders Results/Orders: ultrasound right upper quadrant shows no evidence of acute cholecystitis. No evidence of any ductal blockage. No wall thickening. No significant pericholecystic fluid. Laboratory Tests 07/18/19 07/18/19 07/18/19 13:06 13:06 13:06 WBC 5.4 RBC 4.07 L Hgb 13.9 L Hct 41.1 L MCV 100.9 H MCH 34.2 H MCHC 33.8 RDW 13.0 Plt Count 189 MPV 7.9 Absolute Neuts (auto) 2.60 Absolute Lymphs (auto) 2.00 Absolute Monos (auto) 0.60 Absolute Eos (auto) 0.10 Absolute Basos (auto) 0.00 Neutrophils % 49.1 Lymphocytes % 36.6 Monocytes % 11.9 H Eosinophils % 2.0 Basophils % 0.4 PT 10.4 INR 1.04 PTT (SP) 25.6 Sodium 138 Potassium 3.5 L Chloride 107 Carbon Dioxide 22 Anion Gap 12.5 BUN 16 Creatinine 0.79 BUN/Creatinine Ratio 20.3 H Random Glucose 148 H Serum Osmolality 279.6 Lactic Acid Calcium 8.6 Total Bilirubin 1.1 H AST 85 H ALT 109 H Alkaline Phosphatase 123 H Creatine Kinase 95 CK-MB (CK-2) 2.2 CK-MB (CK-2) % Not Reportable Troponin I < 0.02 B-Natriuretic Peptide 13.5 Serum Total Protein 6.5 Albumin 3.3 Globulin 3.2 Albumin/Globulin Ratio 1.0 L Amylase 74 Lipase 34 Urine Color Urine Appearance Urine pH Ur Specific Deloit Urine Protein Urine Glucose (UA) Urine Ketones Urine Blood Urine Nitrite Urine Bilirubin Urine Urobilinogen Ur Leukocyte Esterase Urine RBC Urine WBC Ur Epithelial Cells Urine Bacteria Urine Mucus Urine Sperm 07/18/19 07/18/19 13:06 13:35 WBC RBC Hgb Hct MCV MCH MCHC RDW Plt Count MPV Absolute Neuts (auto) Absolute Lymphs (auto) Absolute Monos (auto) Absolute Eos (auto) Absolute Basos (auto) Neutrophils % Lymphocytes % Monocytes % Eosinophils % Basophils % PT INR PTT (SP) Sodium Potassium Chloride Carbon Dioxide Anion Gap BUN Creatinine BUN/Creatinine Ratio Random Glucose Serum Osmolality Lactic Acid 1.2 Calcium Total Bilirubin AST ALT Alkaline Phosphatase Creatine Kinase CK-MB (CK-2) CK-MB (CK-2) % Troponin I B-Natriuretic Peptide Serum Total Protein Albumin Globulin Albumin/Globulin Ratio Amylase Lipase Urine Color Lisseth Urine Appearance Clear Urine pH 6.0 Ur Specific Deloit 1.025 Urine Protein 30 Urine Glucose (UA) Negative Urine Ketones Negative Urine Blood Negative Urine Nitrite Negative Urine Bilirubin Small H Urine Urobilinogen >= 8.0 H Ur Leukocyte Esterase Negative Urine RBC 0-1 Urine WBC 1-3 Ur Epithelial Cells 1-3 Urine Bacteria Rare Urine Mucus Small Urine Sperm 0-1 Departure - Departure Clinical Impression: Recurrent biliary colic Disposition: Discharge to Home or Self Care Condition: Fair Departure Forms: ED Discharge - Pt. Copy, Patient Portal Self Enrollment Diet: low fat, low cholesterol Activity: increase activity as tolerated Referrals: Lizz Kennedy NP [Primary Care Provider] - 1-2 Weeks Prescriptions: Tramadol HCl 50 mg PO Q8HR PRN #20 tab PRN Reason: Moderate Pain Home Medications: Ambulatory Orders Amlodipine Besylate 10 mg PO DAILY 05/14/19 Gabapentin 600 mg PO TID 05/14/19 Aspirin [Aspirin Adult Low Dose] 81 mg PO DAILY 07/18/19 Ibuprofen 600 mg PO TID 07/18/19 Tramadol HCl 50 mg PO Q8HR PRN #20 tab 07/18/19 Additional Instructions: the patient is a 63-year-old male presenting with right upper quadrant pain that is acute on chronic in nature. This is most consistent with biliary colic. I see no evidence of any significant obstruction or infection at this time. The patient was hydrated and was given some pain medications and is feeling somewhat better. He does need to keep his follow-up with his general surgeon to get his gallbladder out. ER warnings are given for any significant worsening. He will be written for tramadol for as needed use for pain control. he was given 1 dose of milk of magnesia in case mild constipation is contributing to his worsening of symptoms.
[2019-07-18 15:23] VITALS: BP 108/75; TEMP 97.9; O2SAT 97
== END 2019-07-18 15:21 | disposition home or self-care (01) ==
LOC: ER 12:23
DX: K80.20 Calculus of gallbladder without cholecystitis without obstruction (principal); J45.909 Unspecified asthma, uncomplicated; I51.9 Heart disease, unspecified; I10 Essential (primary) hypertension; K21.9 Gastro-esophageal reflux disease without esophagitis; C14.0 Malignant neoplasm of pharynx, unspecified; Z86.73 Personal history of transient ischemic attack (TIA), and cerebral infarction without residual deficits; Z79.82 Long term (current) use of aspirin; Z79.899 Other long term (current) drug therapy
CPT/HCPCS: 36415; 76705; 80053; 81001; 82150; 82550; 82553; 83605; 83690; 83880; 84484; 85025; 85610; 85730; J1885; J7030

== ENCOUNTER → 2019-07-30 | Outpatient (CLI) | payer MEDICARE | LOC: ECHO 11:38 | PROVIDERS: ATTEND Nurse Practitioner Family | DX: R01.2 Other cardiac sounds (principal); I65.29 Occlusion and stenosis of unspecified carotid artery ==

== ENCOUNTER 2019-08-09 05:40 | Day surgery (SDC) | payer MEDICARE ==
[2019-08-09] MEDS ORDERED: LACTATED RINGERS 1,000 ML ONE (06:57)
[2019-08-09] MEDS ORDERED: DEXAMETHASONE INJ 10 MG/ML VIAL ONE (07:00)
[2019-08-09] MEDS ORDERED: LIDOCAINE 1% 10 ML VIAL INJ ONE (07:00)
[2019-08-09] MEDS ORDERED: ePHEDrine SULF 50 MG/ML ONE (07:00)
[2019-08-09] MEDS ORDERED: raNITIdine HCL INJ 25 MG/ML VIAL ONE (07:00)
[2019-08-09] MEDS ORDERED: PROPOFOL 200 MG/20 ML VIAL IV ONE (07:00)
[2019-08-09] MEDS ORDERED: MIDAZOLAM INJ 2 MG/2 ML VIAL ONE (08:04)
[2019-08-09] MEDS ORDERED: KETAMINE HCL 100 MG/ML VIAL ONE (08:04)
[2019-08-09] MEDS ORDERED: ROCURONIUM BROMIDE 10 MG/ML VIAL ONE (08:05)
[2019-08-09] MEDS ORDERED: fentaNYL CITRATE INJ 50 MCG/ML AMP ONE (08:05)
[2019-08-09] MEDS ORDERED: BUPIVACAINE 0.5% W/EPI 30 ML VIAL INJ ONE (08:05)
[2019-08-09] MEDS ORDERED: SUGAMMADEX SODIUM 200 MG/2 ML VIAL IV ONE (08:50)
[2019-08-09] MEDS ORDERED: ELECTROLYTE-A 1,000 ML IVS ONE (08:50)
[2019-08-09] MEDS: HYDROmorphone HCL INJ 2 MG/ML VIAL ONE ×3 (09:32→09:52)
[2019-08-09] MEDS ORDERED: HYDROcodone 5MG/APAP 325MG 1 EA TAB ONE (10:32)
[2019-08-09 13:20] VITALS: TEMP 98.5
[2019-08-09 13:21] VITALS: BP 136/87; O2SAT 94
--- NOTE | 2019-08-24 11:01 | OP ---
DATE OF PROCEDURE: 08/09/19 PREOPERATIVE DIAGNOSIS: 1. Symptomatic cholelithiasis. POSTOPERATIVE DIAGNOSIS: 1. Symptomatic cholelithiasis. PROCEDURE: 1. Laparoscopic cholecystectomy with intraoperative cholangiogram. SURGEON: Javy Camejo MD. ANESTHESIA: General and local. FINDINGS: Some mild evidence of chronic cystitis. Cholangiogram was normal. COMPLICATIONS: None. ESTIMATED BLOOD LOSS: Minimal. CONDITION: Stable. PLAN: Discharge. INDICATION: As stated. PROCEDURE: General anesthesia was induced. The patient was prepped and draped in sterile fashion. Marcaine 0.5% with epinephrine was used at all incision sites. While maintaining upward traction, a esther was made near the base of the umbilicus. Veress needle was introduced. There was free flow of fluid into the peritoneal cavity which was insufflated to an appropriate level with CO2 gas. The 5 mm trocar was placed followed by the camera. There was no evidence of bleeding or bowel injury. The patient was positioned and subxiphoid and lateral ports were placed under direct visualization without difficulty. The gallbladder fundus was identified. It was grasped and retracted superiorly and laterally. A few anterior adhesions were taken down to identify the infundibulum. The infundibular structures were dissected free. The duct and artery were clearly visualized through the triangle of Calot. A clip was placed on the proximal duct and ductotomy performed. The cholangiocatheter was introduced. The cholangiogram revealed the above normal findings. The catheter was removed. Three clips were placed on the distal duct. The duct was ligated and the artery triply ligated, as was a small posterior branch. The gallbladder was then dissected off the fossa in toto and removed in the EndoCatch bag. The fossa was examined. It remained hemostatic. The clips were intact. There was no bleeding or bile leak. The subxiphoid fascia was then closed with 0 Vicryl using the suture passer. It was airtight and non-bleeding. The remaining trocars were removed. There was no bleeding from the trocar sites. The wounds were irrigated and closed with Monocryl. Dressings were applied. The patient was awakened and taken to Recovery to be discharged. #[id number] MTDD
== END 2019-08-09 11:05 | disposition home or self-care (01) ==
LOC: AMB 05:40
PROVIDERS: ATTEND Surgery
DX: K80.10 Calculus of gallbladder with chronic cholecystitis without obstruction (principal); I10 Essential (primary) hypertension; Z79.899 Other long term (current) drug therapy
CPT/HCPCS: 00790; 36415; 36416; 47563; 80048; 82948; 85014; 85018; 88304; J1100; J1170; J2250; J2780; J3010; J3490; J7120

== ENCOUNTER → 2019-08-24 | Outpatient (CLI) | payer MEDICARE ==
--- NOTE | 2019-08-24 14:09 | MRI ---
Study: MRI of the Left Foot. Indication: FRACTURE OF FIRST METATARSAL BONE, LEFT FOOT Technique: Multiplanar, multi sequence MRI of the left foot was obtained without intravenous contrast. Comparison: Radiographs June 26, 2019. Findings: Prior ORIF of the first metatarsal fracture status post hardware removal. The fracture is healed but with malunion and foreshortening of the femoral shaft as well as marked thickening of the base and proximal metadiaphysis. 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 Less pronounced mild osteoarthritis throughout the remainder of the midfoot. Lisfranc ligament intact. No acute fracture. Bifid medial hallux sesamoid. Mild to moderate osteoarthritis first MTP joint with mild changes first IP joint. No gross rupture of the flexor/extensor tendons or distal plantar fascia. Impression: Malunion of a proximal first metatarsal fracture with foreshortening as detailed above. Secondary severe osteoarthritis first TMT joint noted. No acute fracture. Additional findings as above. Electronically signed by: Librado Fernández MD 08/24/2019 2:07 PM CDT
== END ==
LOC: MRI 10:40
PROVIDERS: ATTEND Orthopaedic Surgery
DX: S92.315K Nondisplaced fracture of first metatarsal bone, left foot, subsequent encounter for fracture with nonunion (principal); M19.272 Secondary osteoarthritis, left ankle and foot

== ENCOUNTER → 2019-08-28 | Outpatient (CLI) | payer MEDICARE | LOC: YCFC.O 09:01 | PROVIDERS: ATTEND Nurse Practitioner | DX: E55.9 Vitamin D deficiency, unspecified (principal); E78.5 Hyperlipidemia, unspecified; R53.83 Other fatigue; R94.5 Abnormal results of liver function studies; Z13.220 Encounter for screening for lipoid disorders ==

== ENCOUNTER 2019-10-10 05:39 | Day surgery (SDC) | payer MEDICARE ==
[2019-10-10] MEDS ORDERED: LACTATED RINGERS 1,000 ML ONE (05:47)
[2019-10-10] MEDS ORDERED: LACTATED RINGERS 1,000 ML IVS ONE (07:05)
[2019-10-10 08:51] VITALS: BP 124/80; TEMP 98.7; O2SAT 97
[2019-10-10] MEDS ORDERED: PROPOFOL 200 MG/20 ML VIAL IV ONE (10:00)
[2019-10-10] MEDS ORDERED: LIDOCAINE 1% 10 ML VIAL INJ ONE (10:00)
--- NOTE | 2019-10-10 10:55 | OP ---
DATE OF PROCEDURE: 10/10/19 PREOPERATIVE DIAGNOSIS: 1. Hematochezia. 2. Family history of GI malignancy. POSTOPERATIVE DIAGNOSIS: 1. Poor bowel preparation. PROCEDURE: 1. Colonoscopy. SURGEON: Bruce Zheng MD ANESTHESIA: Monitored anesthesia care. ESTIMATED BLOOD LOSS: Less than 5 mL. COMPLICATIONS: None. PROCEDURE: The patient was placed in the left lateral decubitus position. A time-out was performed. After deep sedation was achieved, the Olympus adult colonoscope was inserted through the anus, into the rectum and advanced to the sigmoid colon under direct visualization. Further advancement was not performed given inadequate bowel preparation. The endoscope was then withdrawn the procedure terminated. The patient tolerated the procedure well with no immediate complications. FINDINGS: 1. A large amount of solid stool was noted in the rectum and distal sigmoid colon, precluding visualization. Water lavage was performed, resulting in inadequate clearance and poor visualization. The procedure was aborted. IMPRESSION: 1. Poor bowel preparation. 2. Limited exam of the rectum and sigmoid colon. RECOMMENDATIONS: 1. Okay to discharge home once the patient meets discharge criteria. 2. Resume prior diet. 3. Resume home medications. 4. Reschedule colonoscopy at the patients convenience with an extended bowel preparation. 5. Followup in the GI clinic once the above studies are complete. #[id number] [facility]
== END 2019-10-10 08:50 | disposition home or self-care (01) ==
LOC: AMB 05:39
PROVIDERS: ATTEND Internal Medicine Gastroenterology
DX: K92.1 Melena (principal); I10 Essential (primary) hypertension; K21.9 Gastro-esophageal reflux disease without esophagitis; Z80.0 Family history of malignant neoplasm of digestive organs; Z90.49 Acquired absence of other specified parts of digestive tract; Z79.84 Long term (current) use of oral hypoglycemic drugs; Z79.899 Other long term (current) drug therapy
CPT/HCPCS: 45330; J3490; J7120

== ENCOUNTER 2019-11-23 18:40 | Emergency (ER) | payer MEDICARE ==
[2019-11-23] MEDS: IBUPROFEN 200 MG TAB PO ONE (19:12)
--- NOTE | 2019-11-23 19:44 | RAD ---
EXAM DESCRIPTION: XR Chest,2 Views CLINICAL HISTORY: cough fever 3 days TECHNIQUE: 05/31/2019 COMPARISON: None available for comparison FINDINGS: Heart: The cardiothoracic silhouette is within normal limits. Lungs: No focal consolidation. Mediastinum: Unremarkable Pleura: No appreciable effusion. No pneumothorax. Bones: Multilevel spondylosis. Remote right posterior 6th and 7th rib and T12 anterior compression fractures again demonstrated. No acute fracture. Upper abdomen: Unremarkable IMPRESSION: No acute disease. Electronically signed by: Sean Alexander MD 11/23/2019 7:42 PM [facility]
--- NOTE | 2019-11-23 19:50 | ED.PDOC ---
History of Present Illness - General Chief Complaint: Respiratory Problem Stated Complaint: cough and congestion Time Seen by Provider: 11/23/19 18:50 Source: patient Exam Limitations: no limitations - History of Present Illness Initial Comments: The patient is a 64-year-old male presented to the emergency room secondary to low-grade fever, cough, runny nose and mild sore throat for the last 3 days. No shortness of breath. He is feeling fatigued. He has had some mild body aches. No overt weakness. No syncope. He has had a mild headache. There have been numerous members in the community with similar symptoms. One episode of vomiting. Timing/Duration: other - 3 days Severity: moderate Improving Factors: nothing Worsening Factors: nothing Associated Symptoms: cough, fever/chills, headaches, loss of appetite, malaise, nausea/vomiting Allergies/Adverse Reactions: Allergies NO KNOWN ALLERGY Allergy (Verified 08/07/19 13:43) Home Medications: Ambulatory Orders Amlodipine Besylate 10 mg PO DAILY 05/14/19 Gabapentin 600 mg PO TID 05/14/19 Aspirin [Aspirin Adult Low Dose] 81 mg PO DAILY 07/18/19 Cholecalciferol [D3 2000] 2,000 unit PO DAILY 10/04/19 DULoxetine HCL [Cymbalta] 30 mg PO BEDTIME 10/04/19 Esomeprazole Magnesium [Nexium 24Hr] 20 mg PO PRN PRN 10/04/19 Hydrocodone-Acetaminophen [[place] 7.5-325 mg] 1 tab PO PRN PRN 10/04/19 Review of Systems - Review of Systems Constitutional: States: fever. Denies: malaise EENTM: States: nose congestion, throat pain Respiratory: States: cough Cardiology: States: no symptoms reported Gastrointestinal/Abdominal: States: nausea, vomiting Genitourinary: States: no symptoms reported Musculoskeletal: States: see HPI Skin: States: no symptoms reported Neurological: States: headache Endocrine: States: no symptoms reported Hematologic/Lymphatic: States: no symptoms reported All other Systems: No Change from Baseline Past Medical History (General) - Patient Medical History Hx Seizures: No Hx Stroke: Yes Hx Dementia: No Hx Asthma: Yes Hx of COPD: Yes Hx Cardiac Disorders: Yes Hx Congestive Heart Failure: No Hx Pacemaker: No Hx Hypertension: Yes Hx Thyroid Disease: No Hx Diabetes: No Hx Gastroesophageal Reflux: Yes Hx Renal Disease: No Hx Cancer: Yes - throat ca refuses tx, Hx of HIV: No Hx Hepatitis C: No Hx MRSA: No Surgical History: cholecystectomy - Vaccination History Hx Tetanus, Diphtheria Vaccination: No Hx Influenza Vaccination: Yes Hx Pneumococcal Vaccination: No - Social History Hx Tobacco Use: No Hx Alcohol Use: No Hx Substance Use: No Hx Substance Use Treatment: No Hx Depression: No Hx Physical Abuse: No Hx Emotional Abuse: No Hx Suspected Abuse: No Family Medical History - Family History Father Family History: Unknown Living Status: Hx Family Cancer: Yes Mother Living Status: Cause of : Grief Physical Exam - Physical Exam General Appearance: Alert, Comfortable, No apparent distress Eye Exam: bilateral normal Ears, Nose, Throat: hearing grossly normal, nasal congestion, pharyngeal erythema Neck: full range of motion, supple Respiratory: lungs clear, normal breath sounds, no respiratory distress, no accessory muscle use Cardiovascular/Chest: normal peripheral pulses, regular rate, rhythm, no edema Peripheral Pulses: radial,right: 2+, radial,left: 2+ Gastrointestinal/Abdominal: non tender, soft Rectal Exam: deferred Back Exam: no CVA tenderness, no vertebral tenderness Extremity: normal range of motion, non-tender, normal inspection, no pedal edema, normal capillary refill 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 chronic findings only. Progress - Progress Progress: 11/23/19 19:52 The patient is a 64-year-old male presenting with what appears to be a common cold. He has tested negative for influenza. Chest x-ray is reassuring. Vital signs are reassuring. Needs to keep himself well-hydrated. Motrin, Aleve or ibuprofen can be used every 8 hours with food to help reduce symptoms. He should consider himself contagious at this time. He should return to the emergency room for any significant worsening. Symptoms will likely last another 3 or 4 days. He will be written for a small amount of Zofran to use as needed to control any nausea or vomiting. arley thomson [id number] Departure - Departure Clinical Impression: Common cold Disposition: Discharge to Home or Self Care Condition: Fair Departure Forms: ED Discharge - Pt. Copy, Patient Portal Self Enrollment Instructions: Cough, Runny Nose, and the Common Cold (DC) Diet: regular diet Activity: increase activity as tolerated Referrals: Carrie Hansen FNP [Primary Care Provider] - 1-2 Weeks Home Medications: Ambulatory Orders Amlodipine Besylate 10 mg PO DAILY 05/14/19 Gabapentin 600 mg PO TID 05/14/19 Aspirin [Aspirin Adult Low Dose] 81 mg PO DAILY 07/18/19 Cholecalciferol [D3 2000] 2,000 unit PO DAILY 10/04/19 DULoxetine HCL [Cymbalta] 30 mg PO BEDTIME 10/04/19 Esomeprazole Magnesium [Nexium 24Hr] 20 mg PO PRN PRN 10/04/19 Hydrocodone-Acetaminophen [[place] 7.5-325 mg] 1 tab PO PRN PRN 10/04/19 Additional Instructions: The patient is a 64-year-old male presenting with what appears to be a common cold. He has tested negative for influenza. Chest x-ray is reassuring. Vital signs are reassuring. Needs to keep himself well-hydrated. Motrin, Aleve or ibuprofen can be used every 8 hours with food to help reduce symptoms. He should consider himself contagious at this time. He should return to the emergency room for any significant worsening. Symptoms will likely last another 3 or 4 days. He will be written for a small amount of Zofran to use as needed to control any nausea or vomiting.
[2019-11-23 20:02] VITALS: BP 153/77; TEMP 99.7; O2SAT 96
== END 2019-11-23 20:02 | disposition home or self-care (01) ==
LOC: ER 18:40
DX: J00 Acute nasopharyngitis [common cold] (principal); R11.2 Nausea with vomiting, unspecified; J44.9 Chronic obstructive pulmonary disease, unspecified; I51.9 Heart disease, unspecified; I10 Essential (primary) hypertension; K21.9 Gastro-esophageal reflux disease without esophagitis; C14.0 Malignant neoplasm of pharynx, unspecified; Z86.73 Personal history of transient ischemic attack (TIA), and cerebral infarction without residual deficits; Z79.82 Long term (current) use of aspirin; Z79.899 Other long term (current) drug therapy

== ENCOUNTER 2019-12-04 11:40 | Emergency (ER) | payer MEDICARE ==
[2019-12-04] MEDS ORDERED: SODIUM CHLORIDE 0.9% 1000ML 1,000 ML IVS ONE (12:49)
[2019-12-04] MEDS ORDERED: ONDANSETRON INJ 4 MG/2 ML VIAL IV ONE (12:49)
--- NOTE | 2019-12-04 12:52 | ED.PDOC ---
History of Present Illness - General Chief Complaint: GI Problem Stated Complaint: N/V/D, abdominal discomfort Time Seen by Provider: 12/04/19 12:45 Information Source: patient, family Exam Limitations: no limitations - History of Present Illness Initial Comments: 1 wk ago, SEEN FOR NASAL AND CHEST CONGESTION. YESTERDAY STARTED HAVING ABD PAIN, N/V/D. VOMITED "ALL NIGHT". PSH: COLECYSTECTOMY. STILL HAS HIS APPENDIX. Abdominal Pain Onset Location: generalized abdomen Pain Radiation: no radiation Quality: severe Timing/Duration: days Improving Factors: nothing Worsening Factors: nothing Associated Symptoms: diarrhea, nausea/vomiting Review of Systems - Review of Systems Constitutional: Denies: chills, fever EENTM: Denies: ear pain, nose congestion Respiratory: Denies: cough, short of breath Cardiology: Denies: chest pain, palpitations Gastrointestinal/Abdominal: States: abdominal pain, diarrhea, nausea, vomiting Genitourinary: Denies: dysuria, frequency Musculoskeletal: Denies: back pain, joint pain, neck pain Skin: Denies: lesions, rash Neurological: Denies: headache, weakness Endocrine: Denies: unexplained weight gain, unexplained weight loss Hematologic/Lymphatic: Denies: easy bleeding, easy bruising All other Systems: Reviewed and Negative Past Medical History (General) - Patient Medical History Hx Seizures: No Hx Stroke: Yes Hx Dementia: No Hx Asthma: Yes Hx of COPD: Yes Hx Cardiac Disorders: Yes Hx Congestive Heart Failure: No Hx Pacemaker: No Hx Hypertension: Yes Hx Thyroid Disease: No Hx Diabetes: No Hx Gastroesophageal Reflux: Yes Hx Renal Disease: No Hx Cancer: Yes - Throat CA Hx of HIV: No Hx Hepatitis C: No Hx MRSA: No - Vaccination History Hx Tetanus, Diphtheria Vaccination: No Hx Influenza Vaccination: No Hx Pneumococcal Vaccination: No - Social History Hx Tobacco Use: No Hx Alcohol Use: No Hx Substance Use: No Hx Substance Use Treatment: No Hx Depression: No Hx Physical Abuse: No Hx Emotional Abuse: No Hx Suspected Abuse: No Family Medical History - Family History Father Family History: Unknown Living Status: Hx Family Cancer: Yes Mother Living Status: Cause of : Grief Physical Exam - Physical Exam General Appearance: Alert, Obvious distress Eyes, Ears, Nose, Throat Exam: PERRL/EOMI, normal ENT inspection, TMs normal, pharynx normal Neck: non-tender, full range of motion, supple Respiratory: chest non-tender, lungs clear, normal breath sounds Cardiovascular/Chest: normal peripheral pulses, no edema, no gallop, no JVD, no murmur, other - REGULAR RHYTHM, MILDLY TACHYCARDIC. Peripheral Pulses: No deficit Gastrointestinal/Abdominal: normal bowel sounds, no organomegaly, no pulsatile mass, guarding, tenderness - X ALL 4 QUADRANTS. Back Exam: normal inspection, no CVA tenderness, no vertebral tenderness Extremity: normal range of motion, normal inspection Neurologic: no motor/sensory deficits, alert Skin Exam: normal color, warm/dry Lymphatic: no adenopathy Progress - Progress Progress: 12/04/19 14:19 PROLONGED ER STAY - CT READ STILL PENDING. CT STUDY WAS APPROPRIATELY DELAYED DUE TO CT SCANNER BEING UTILIZED. 12/04/19 15:[address] NEG FOR SURGICAL ABDOMEN. CBC NEG EXCEPT ELEV NEUTROPHILS. CMP HYPOKALEMIA - REPLACED PO. LFT'S SLIGHTLY ELEVATED BUT NOT CONCERNING LEVEL. DEHYDRATION AND TACHYCARDIA - BOLUSED. NAUSEA - RESOLVED W/ ZOFRAN. ABD PAIN - RESOLVED W/ MORPHINE. 12/04/19 15:06 SAFE FOR DC TO HOME WITH SON. Departure - Departure Clinical Impression: Gastroenteritis, Diarrhea, Nausea & vomiting, Tachycardia with heart rate 100- 120 beats per minute, Hypokalemia due to excessive gastrointestinal loss of potassium, Dehydration Disposition: Discharge to Home or Self Care Condition: Good Departure Forms: ED Discharge - Pt. Copy, Patient Portal Self Enrollment Instructions: Viral Gastroenteritis, Adult (DC) Diet: bland diet Activity: increase activity as tolerated Referrals: Carrie Hansen FNP [Primary Care Provider] - 1-2 Weeks Prescriptions: Ondansetron Odt [Zofran ODT] 8 mg SL TID PRN #15 tab PRN Reason: Nausea Home Medications: Ambulatory Orders Amlodipine Besylate 10 mg PO DAILY 05/14/19 Gabapentin 600 mg PO TID 05/14/19 Aspirin [Aspirin Adult Low Dose] 81 mg PO DAILY 07/18/19 Cholecalciferol [D3 2000] 2,000 unit PO DAILY 10/04/19 DULoxetine HCL [Cymbalta] 30 mg PO BEDTIME 10/04/19 Esomeprazole Magnesium [Nexium 24Hr] 20 mg PO PRN PRN 10/04/19 Hydrocodone-Acetaminophen [[place] 7.5-325 mg] 1 tab PO PRN PRN 10/04/19 Ondansetron Odt [Zofran ODT] 8 mg SL TID PRN #15 tab 12/04/19
[2019-12-04] MEDS ORDERED: MORPHINE SULFATE INJ 10 MG/ML VIAL IV ONE (13:31)
[2019-12-04] MEDS ORDERED: POTASSIUM CHLORIDE 20 MEQ TAB PO ONE (14:20)
--- NOTE | 2019-12-04 14:38 | CT ---
EXAM DESCRIPTION: Abdoment/Pelvis w/o Contrast CLINICAL HISTORY: 64 years Male, ABD [id number] QUADRANTS, GUARDING, N/V. COMPARISON: CT abdomen and pelvis dated 05/25/2019. TECHNIQUE: Contiguous 3 mm axial images were obtained from the lung bases to the level of the proximal femora without the administration of intravenous or oral contrast. Sagittal and coronal reconstructions were reviewed. FINDINGS: Limited evaluation of the solid organs due to the lack of intravenous contrast. THORAX: The imaged lower thorax demonstrates no gross abnormality. LIVER: The liver demonstrates normal size and density with no intrahepatic biliary ductal dilatation. GALLBLADDER: Surgically absent. PANCREAS: Appears normal with no cystic or solid lesions. SPLEEN: Few splenic granulomas are noted. ADRENAL GLANDS: Normal with no nodules or masses. KIDNEYS: Multiple nonobstructive calculi measuring up to 7 mm are noted in the right kidney. No hydronephrosis bilaterally. The visualized ureters appear grossly unremarkable. STOMACH: The stomach is not well-distended limiting detailed evaluation. SMALL BOWEL: The small bowel loops demonstrate variable degrees of distention with no abnormal dilatation or other signs to suggest bowel obstruction. LARGE BOWEL: Multiple diverticula are noted throughout the visualized colon, with no acute inflammation. No evidence of free intraperitoneal air or fluid. RETROPERITONEUM: The abdominal aorta is nonaneurysmal with moderate atherosclerosis. The inferior vena cava is normal in size and caliber. Multiple subcentimeter mesenteric lymph nodes are identified which are nonspecific in etiology. URINARY BLADDER: Circumferential thick wall of the urinary bladder. Prostate gland and seminal vesicles appear normal. ADDITIONAL FINDINGS: Fat-containing bilateral inguinal hernias. BONES: Mild degenerative changes are identified in the visualized bones. Compression fracture of T12 vertebral body with approximately 80% loss of height. This was noted on prior examination dated 05/25/2019. IMPRESSION: No acute intra-abdominal or intrapelvic process. Circumferential wall thickening of the urinary bladder is noted which is nonspecific in etiology. Multiple nonobstructive calculi of the right kidney. This exam was performed according to our departmental dose-optimization program, which includes automated exposure control, adjustment of the mA and/or kV according to patient size and/or use of iterative reconstruction technique. Electronically signed by: Xochitl Lehman MD 12/04/2019 2:36 PM [employer]
[2019-12-04 15:38] VITALS: BP 146/106; TEMP 98.6; O2SAT 97
== END 2019-12-04 15:25 | disposition home or self-care (01) ==
LOC: ER 11:40
DX: K52.9 Noninfective gastroenteritis and colitis, unspecified (principal); R00.0 Tachycardia, unspecified; E87.6 Hypokalemia; E86.0 Dehydration; J44.9 Chronic obstructive pulmonary disease, unspecified; I50.9 Heart failure, unspecified; I10 Essential (primary) hypertension; K21.9 Gastro-esophageal reflux disease without esophagitis; Z90.49 Acquired absence of other specified parts of digestive tract; Z85.819 Personal history of malignant neoplasm of unspecified site of lip, oral cavity, and pharynx; Z86.73 Personal history of transient ischemic attack (TIA), and cerebral infarction without residual deficits
CPT/HCPCS: 74176; 80053; 83690; 85025; J2270; J2405; J7030

== ENCOUNTER 2020-01-02 | Emergency (ER) | payer MEDICARE | END 2020-01-03 00:30 | disposition home or self-care (01) | DX: S20.211A Contusion of right front wall of thorax, initial encounter (principal); E87.6 Hypokalemia; R94.5 Abnormal results of liver function studies; R05 Cough; J44.9 Chronic obstructive pulmonary disease, unspecified; I25.2 Old myocardial infarction; I10 Essential (primary) hypertension; K21.9 Gastro-esophageal reflux disease without esophagitis; Z86.73 Personal history of transient ischemic attack (TIA), and cerebral infarction without residual deficits; Z85.818 Personal history of malignant neoplasm of other sites of lip, oral cavity, and pharynx; Z79.82 Long term (current) use of aspirin; Z79.899 Other long term (current) drug therapy | CPT/HCPCS: 36415; 71260; 74177; 80053; 85025; J2405; J3010 ==

== ENCOUNTER 2020-01-28 15:30 | Observation (INO) | payer MEDICARE ==
[2020-01-28] MEDS ORDERED: ASPIRIN TABLET 325 MG TAB PO ONE (16:10)
--- NOTE | 2020-01-28 16:11 | CT ---
PROVIDED CLINICAL HISTORY/REASON FOR EXAM: left sided weakness 2 days TECHNIQUE: Volumetric CT data of the brain was obtained without intravenous contrast. This exam was performed according to our departmental dose-optimization program, which includes automated exposure control, adjustment of the mA and/or kV according to patient size and/or use of iterative reconstruction technique. COMPARISON: May 14, 2019 FINDINGS: The ventricles and sulci are normal, without hydrocephalus or significant atrophy. Septum pellucidum and third ventricle are midline. No acute infarction is evident by CT. No acute hemorrhage is present. No mass or mass effect is present. The calvaria and soft tissues are unremarkable. The visualized paranasal sinuses are unremarkable. Similar chronic small vessel ischemic change. IMPRESSION: No acute intracranial abnormalities. Findings discussed with Francis Borjas at 4:09 PM 01/28/2020 Electronically signed by: Roby Hammond MD 01/28/2020 4:09 PM CDT
--- NOTE | 2020-01-28 16:12 | RAD ---
EXAM DESCRIPTION: Chest x-ray,1 View CLINICAL HISTORY: 64 years Male, let sided weakness COMPARISON: Previous study November 23, 2019 TECHNIQUE: AP portable chest. FINDINGS: Heart size is prominent with normal pulmonary vascularity. No consolidating infiltrate. No pulmonary mass or worrisome nodule. No pneumothorax or pleural effusion. Bones are unremarkable. IMPRESSION: Prominent heart without congestive failure. Electronically signed by: Jan Moon MD 01/28/2020 4:10 PM CDT
[2020-01-28] MEDS ORDERED: ALPRAZolam 0.25 MG TAB PO ONE (16:23)
[2020-01-28] MEDS ORDERED: ALPRAZolam 0.5 MG TAB ONE (16:26)
--- NOTE | 2020-01-28 17:48 | ED.PDOC ---
History of Present Illness - General Chief Complaint: Neuro Symptoms/Deficits Stated Complaint: left sided weakness Time Seen by Provider: 01/28/20 15:36 Source: patient Exam Limitations: no limitations - History of Present Illness Initial Comments: The patient is a 64-year-old male presented to the emergency room secondary to symptoms of reported left upper extremity and left lower extremity weakness since Tuesday. That is approximately 48 hours. No loss of consciousness. No head pain. No altered mental status. No neck pain. No fevers. No slurring of the speech. No loss of balance. The patient does have a complicating exam in that he does have a chronic first metatarsal fracture interfering with his gait and a nearly frozen shoulder on the left interfering with the left upper extremity exam. His gait is unsteady going from the wheelchair to the bed. He does seem to be able to move the elbow quite well and and the limited motion of his shoulder seems to be somewhat strong. Scale Operator seems to be poor. The patient is very nervous. The patient does have a longstanding history of peripheral neuropathy anxiety and depression. He reports that the ep isode started when he got mad at his daughter on Tuesday. There is some questionable history of a TIA occurring back in April of this previous year. Carotid Doppler and CTA of the neck showed a unilateral carotid stenosis of around 60%. See those reports for details. The patient is in no current distress. Speech is clear. No difficulty with swallowing. No vision changes. He is alert and oriented x4. Timing/Duration: other - 2 days, almost 3 days Severity: moderate Improving Factors: nothing Worsening Factors: nothing Associated Symptoms: denies symptoms Allergies/Adverse Reactions: Allergies NO KNOWN ALLERGY Allergy (Verified 01/28/20 15:47) Home Medications: Ambulatory Orders Amlodipine Besylate 10 mg PO DAILY 05/14/19 Gabapentin 600 mg PO TID 05/14/19 Aspirin [Aspirin Adult Low Dose] 81 mg PO DAILY 07/18/19 DULoxetine HCL [Cymbalta] 30 mg PO BEDTIME 10/04/19 Amitriptyline HCl [Amitriptyline Hydrochlori] 10 mg PO QAM 01/28/20 HYDROcodone 10MG/APAP 325MG [[place] 10/325] 1 tab PO Q6H PRN 01/28/20 Hydrocortisone Butyrate 1 applic TOP QAM PRN 01/28/20 Review of Systems - Review of Systems Constitutional: States: no symptoms reported EENTM: States: no symptoms reported Respiratory: States: no symptoms reported Cardiology: States: no symptoms reported Gastrointestinal/Abdominal: States: no symptoms reported Genitourinary: States: no symptoms reported Musculoskeletal: States: see HPI Skin: States: no symptoms reported Neurological: States: see HPI Endocrine: States: no symptoms reported All other Systems: No Change from Baseline Past Medical History (General) - Patient Medical History Hx Seizures: No Hx Stroke: Yes - no residual effects Hx Dementia: No Hx Asthma: Yes Hx of COPD: Yes Hx Cardiac Disorders: Yes - MD Hx Congestive Heart Failure: No Hx Pacemaker: No Hx Hypertension: Yes Hx Thyroid Disease: No Hx Diabetes: No Hx Gastroesophageal Reflux: Yes Hx Renal Disease: No Hx Cancer: Yes - Throat CA Hx of HIV: No Hx Hepatitis C: No Hx MRSA: No - Vaccination History Hx Tetanus, Diphtheria Vaccination: No Hx Influenza Vaccination: Yes Hx Pneumococcal Vaccination: Yes - Social History Hx Tobacco Use: No Hx Chewing Tobacco Use: No Hx Alcohol Use: Yes - quit 30 yrs ago Hx Substance Use: No Hx Substance Use Treatment: No Hx Depression: No Hx Physical Abuse: No Hx Emotional Abuse: No Hx Suspected Abuse: No - Activities of Daily Living Hospice Agency (if applicable):: None - Female History Patient is a Female of Child Bearing Age (10 -59 yrs old): No - Triage Comment ED Triage Comment: pt voices left sided weakness throughout that started tuesday night. Family Medical History - Family History Father Family History: Unknown Living Status: Hx Family Cancer: Yes Mother Living Status: Cause of : Grief Physical Exam - Physical Exam General Appearance: Alert, Anxious, No apparent distress Eye Exam: bilateral normal Ears, Nose, Throat: hearing grossly normal, normal ENT inspection Neck: full range of motion, supple Respiratory: lungs clear, normal breath sounds, no respiratory distress, no accessory muscle use Cardiovascular/Chest: normal peripheral pulses, regular rate, rhythm, no edema Peripheral Pulses: radial,right: 2+, radial,left: 2+, dorsalis pedis,right: 2+, dorsalis pedis,left: 2+ Gastrointestinal/Abdominal: non tender, soft Rectal Exam: deferred Back Exam: no vertebral tenderness Extremity: no pedal edema, no calf tenderness, normal capillary refill, other - Near frozen shoulder on the left. Chronic pain to the left foot due to first metatarsal fracture. Trace edema to the left foot. Neurologic: division order analyst II-XII nml as tested, alert, oriented x 3, other - Chronic peripheral neuropathy. Very anxious. Skin Exam: normal color Comments: Vital Signs - 24 hr 01/28/20 01/28/20 01/28/20 15:44 15:45 16:30 Temperature 99.3 F Pulse Rate [ 89 89 85 brachial] Respiratory 18 18 15 Rate Blood Pressure 158/87 133/94 [Left Arm] O2 Sat by Pulse 95 96 Oximetry 01/28/20 17:00 Temperature 99.3 F Pulse Rate [ 79 brachial] Respiratory 15 Rate Blood Pressure 153/93 [Left Arm] O2 Sat by Pulse 93 L Oximetry Progress - Progress Progress: 01/28/20 17:50 The patient is a 64-year-old male to the emergency room secondary to what appears to be symptoms of a mild stroke getting mild left-sided deficits. 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 Additionally the patient's condition is complicated by significant anxiety. We will plan on admitting the patient overnight for further monitoring. If he is still exhibiting significant deficits that would inhibit him from attempting to do his activities of daily living then he may require inpatient rehabilitation somewhere. If not then outpatient rehab may suffice. Patient does understand this. He has received an aspirin. Admit for continued monitoring. - Results/Orders Results/Orders: Chest x-ray shows mild cardiomegaly but otherwise clear. EKG shows normal sinus rhythm at 89 bpm normal QT interval. Normal axis. Normal R wave progression. Mild LVH criteria. No definitive ST segment or T wave changes indicative of acute ischemia. Laboratory Tests 01/28/20 01/28/20 01/28/20 16:00 16:00 16:00 WBC 7.1 RBC 4.44 L Hgb 15.0 Hct 44.2 MCV 99.5 H MCH 33.9 H MCHC 34.0 RDW 13.4 Plt Count 191 MPV 7.5 Absolute Neuts (auto) 3.20 Absolute Lymphs (auto) 3.00 Absolute Monos (auto) 0.70 Absolute Eos (auto) 0.10 Absolute Basos (auto) 0.10 Neutrophils % 44.5 Lymphocytes % 42.3 Monocytes % 10.2 H Eosinophils % 1.7 Basophils % 1.3 PT 9.9 INR 1.00 PTT (SP) 23.2 Sodium 140 Potassium 3.6 Chloride 109 Carbon Dioxide 25 Anion Gap 9.6 L BUN 13 Creatinine 0.67 BUN/Creatinine Ratio 19.4 Random Glucose 97 Serum Osmolality 279.4 Calcium 8.8 Magnesium 1.8 Total Bilirubin 0.7 AST 73 H ALT 98 H Alkaline Phosphatase 170 H Creatine Kinase 68 CK-MB (CK-2) 1.9 CK-MB (CK-2) % Not Reportable Troponin I < 0.02 B-Natriuretic Peptide 7.8 Serum Total Protein 7.4 Albumin 3.6 Globulin 3.8 H Albumin/Globulin Ratio 0.9 L TSH 1.[address] shows no acute intracranial pathology. No obvious large ischemic stroke. Departure - Departure Clinical Impression: Stroke-like symptoms, Anxiety Disposition: Admit Patient Condition: Good Departure Forms: ED Discharge - Pt. Copy, Patient Portal Self Enrollment Referrals: Carrie Hansen FNP [Primary Care Provider] - 1-2 Weeks Home Medications: Ambulatory Orders Amlodipine Besylate 10 mg PO DAILY 05/14/19 Gabapentin 600 mg PO TID 05/14/19 Aspirin [Aspirin Adult Low Dose] 81 mg PO DAILY 07/18/19 DULoxetine HCL [Cymbalta] 30 mg PO BEDTIME 10/04/19 Amitriptyline HCl [Amitriptyline Hydrochlori] 10 mg PO QAM 01/28/20 HYDROcodone 10MG/APAP 325MG [[place] 10/325] 1 tab PO Q6H PRN 01/28/20 Hydrocortisone Butyrate 1 applic TOP QAM PRN 01/28/20 Decision To Admit - Decistion To Admit Decision to Admit Reason: Medical Nature Decision to Admit Date: 01/28/20 Decision to Admit Time: 17:53
[2020-01-28] MEDS ORDERED: HYDROcodone 5MG/APAP 325MG 1 EA TAB ONE (18:30)
[2020-01-28] MEDS ORDERED: HYDROcodone 5MG/APAP 325MG 1 EA TAB PO ONE (18:30)
--- NOTE | 2020-01-28 19:46 | HP ---
SUPERVISING PHYSICIAN: Sandeep Heredia MD CHIEF COMPLAINT: Left sided weakness. HISTORY OF PRESENT ILLNESS: This is a 64-year-old male patient who came to the Emergency Room with complaints of left upper and lower extremity weakness. He has a history of a CVA last April with some residual left sided weakness. He also has a history of hypertension and anxiety. He had a fight with his daughter and at that time, his left sided weakness was much more severe. He actually had a difficult time ambulating or using his left arm. Over the next day or two he improved although he still felt like it was not at baseline. He decided to come to the Emergency Room since the symptoms had worsened since his previous stroke. In the Emergency Room, he had some difficulty ambulating and his initial vital signs were temperature 99.3, heart rate 89, blood pressure 168/87, respiratory rate 18, O2 saturation 95% on room air. His CBC was unremarkable. Electrolytes were basically within normal limits. He did have an elevated AST at 73, ALT 98, alkaline phosphatase 170. His cardiac enzymes were negative. TSH 1.04. Chest x-ray shows prominent heart without congestive failure. Head CT showed no acute intracranial abnormality. He was extremely anxious and still quite upset with his daughter, so he received some Xanax. I was called for hospital admission. PAST MEDICAL HISTORY: 1. Hypertension. 2. Anxiety and depression. 3. Throat cancer without any treatment. PAST SURGICAL HISTORY: 1. Benign tumor removed from his left chest wall. 2. Bladder surgery. 3. Foot surgery. HOME MEDICATIONS: 1. Amlodipine. 2. Aspirin. 3. Cymbalta. 4. Gabapentin. 5. Hydrocodone. ALLERGIES: NO KNOWN DRUG ALLERGIES. FAMILY HISTORY: Positive for colon cancer. SOCIAL HISTORY: Denies smoking, ETOH or illicit drug use. He lives in [place] with his girlfriend. REVIEW OF SYSTEMS: GENERAL: Positive for weakness. Negative for fever, chills or weight changes. HEENT: Negative for sinus symptoms, ear pain, vision changes or sore throat. RESPIRATORY: Negative for wheezing, coughing or shortness of breath. CARDIAC: Negative for chest pain, palpitations or tachycardia. GASTROINTESTINAL: Negative for nausea, vomiting, diarrhea, constipation. SKIN: Negative for lesions or rashes. NEUROLOGIC: Positive for left sided weakness that has worsened since last Tuesday although he is slightly improved, but not at baseline. Negative for headache or seizures. PSYCHIATRIC: Positive for anxiety and depression. Negative for suicidal ideation. PHYSICAL EXAMINATION: VITAL SIGNS: Temperature 99.3, heart rate 90, blood pressure 157/105, respiratory rate 15, O2 saturation 98% on room air. GENERAL: This is a 64-year-old male patient who looks older than his stated age. He is resting comfortably. HEENT: Normocephalic, atraumatic. Pupils are equal and reactive. Oropharynx is clear. NECK: Supple without mass. RESPIRATORY: Essentially clear to auscultation bilaterally. CHEST: There is equal rise and fall of the chest with inspiration and expiration. CARDIOVASCULAR: Regular rate and rhythm. GASTROINTESTINAL: Abdomen is soft, nondistended, nontender. Bowel sounds are positive. NEUROLOGIC: Awake, alert and oriented times three. He does have some left sided weakness. His left hammer repairer is weaker than his right hammer repairer. SKIN: Warm and dry. LABORATORY: Labs and films are as per history of present illness. IMPRESSION: 1. Cerebrovascular accident with left sided weakness. 2. Hypertension. 3. Elevated liver enzymes of unknown etiology. 4. Depression and anxiety. 5. History of untreated throat cancer. PLAN: The patient has been placed in observation. We will initiate the TIA/CVA protocol. Neurologic testing will be done. We will have a carotid ultrasound tomorrow. His home medications will be restarted as soon as they are available. He has Lovenox for DVT prophylaxis. I will do a Dump Grounds Checker consult as well as a Physical Therapy consult and we will discuss with him the possibility of an [facility] referral to help with his weakness. We will continue to monitor the patient closely and follow as needed. #[id number] [facility]
[2020-01-28] MEDS ORDERED: SODIUM CHLORIDE 0.9% (FLUSH) 10 ML SYG IV PRN (20:35)
[2020-01-28] MEDS ORDERED: IV SET AND CAP CHANGE INJ INJ SCH (21:00)
[2020-01-28] MEDS ORDERED: DULoxetine HCL 30 MG CAP PO SCH (21:05)
[2020-01-28] MEDS: SODIUM CHLORIDE 0.9% (FLUSH) 10 ML SYG IV SCH (21:13)
[2020-01-28] MEDS ORDERED: GABAPENTIN 300 MG CAP ONE (21:14)
[2020-01-28] MEDS ORDERED: ENOXAPARIN SODIUM 40 MG/0.4 ML SYG SUBCU ONE (21:15)
[2020-01-28] MEDS: HYDROcodone 10MG/APAP 325MG 1 EA TAB PO PRN (21:18)
[2020-01-28] MEDS ORDERED: GABAPENTIN 400 MG CAP PO SCH (21:30)
[2020-01-29] MEDS: HYDROcodone 10MG/APAP 325MG 1 EA TAB PO PRN ×3 (04:52→15:46)
[2020-01-29] MEDS ORDERED: PANTOPRAZOLE SODIUM IV 40 MG VIAL IV SCH (06:30)
[2020-01-29] MEDS ORDERED: amLODIPine BESYLATE 5 MG TAB ONE (07:53)
[2020-01-29] MEDS ORDERED: GABAPENTIN 300 MG CAP ONE (07:53)
[2020-01-29] MEDS: GABAPENTIN 300 MG CAP PO SCH ×2 (08:53→15:46)
[2020-01-29] MEDS: SODIUM CHLORIDE 0.9% (FLUSH) 10 ML SYG IV SCH (08:54)
[2020-01-29] MEDS ORDERED: POTASSIUM CHLORIDE 20 MEQ TAB PO ONE (08:59)
[2020-01-29] MEDS ORDERED: ASPIRIN (ENTERIC COATED) 81 MG TAB PO SCH (09:00)
[2020-01-29] MEDS ORDERED: amLODIPine BESYLATE 5 MG TAB PO SCH (09:00)
[2020-01-29 10:49] VITALS: TEMP 97.7
[2020-01-29 12:20] VITALS: BP 132/76; O2SAT 96
--- NOTE | 2020-01-29 12:22 | US ---
EXAM DESCRIPTION: Carotid Duplex: ULTRASOUND. CLINICAL HISTORY: 64 years Male CVA? COMPARISON: CT abdomen yesterday. Ultrasound carotid duplex examination April 2019. CTA carotid and vertebral vessels April 2019. TECHNIQUE: Transcutaneous scanning utilizing reveles-scale and Doppler modes to evaluate the bilateral carotid systems and vertebral arteries. Percentage of diameter of stenosis or no stenosis recorded will be based upon NASCET criteria. FINDINGS: Peak systolic/end diastolic (CM-Sec) CCA Right 78/14 Left 68/14. ICA Right proximal 50/19, mid 50/19. Left proximal 174/73, mid 76/20. Vertebral Right 63/17 Left 35/17. ECA (PS Only) Right 47 left 66. ICA/CCA peak systolic ratio: Right 0.6 Left 2.5 ICA/CCA end diastolic ratio: Right 1.4 Left 5.1 Vertebral arteries: antegrade flow. Comments: Atherosclerotic calcification bilateral bulbs and ICAs. Spectral broadening bilateral ICAs. Color turbulent flow proximal left ICA. Left CCA bulb: Area stenosis 62%. Diameter stenosis 47%. IMPRESSION: 1. Doppler evaluation of the bilateral carotid systems and vertebral arteries shows no hemodynamically significant stenoses, but Doppler values and grayscale images indicate a 50-69% diameter stenosis in the left ICA. Stable compared to duplex ultrasound and CTA of the carotid and vertebral complex in April 2019. 2. Moderate amount of plaque in the carotid arteries bilaterally. Bilateral vertebral arteries showed antegrade-cephalad flow. Electronically signed by: Angel Luis Glass MD 01/29/2020 12:20 PM CDT
[2020-01-29] MEDS ORDERED: ENOXAPARIN SODIUM 40 MG/0.4 ML SYG SUBCU SCH (21:00)
--- NOTE | 2020-01-30 14:06 | DS ---
SUPERVISING PHYSICIAN: Sandeep Heredia MD DISCHARGE DIAGNOSIS: 1. Cerebrovascular accident with left sided weakness. 2. Hypertension. 3. Elevated liver enzymes of unknown etiology. 4. Depression and anxiety. 5. History of untreated throat cancer. HISTORY OF PRESENT ILLNESS: This is a 64-year-old male patient who came to the Emergency Room with complaints of left upper and lower extremity weakness. He has a history of a CVA last April with some residual left sided weakness. He also has a history of hypertension and anxiety. He had a fight with his daughter and at that time, his left sided weakness was much more severe. He actually had a difficult time ambulating or using his left arm. Over the next day or two he improved although he still felt like it was not at baseline. He decided to come to the Emergency Room since the symptoms had worsened since his previous stroke. In the Emergency Room, he had some difficulty ambulating and his initial vital signs were temperature 99.3, heart rate 89, blood pressure 168/87, respiratory rate 18, O2 saturation 95% on room air. His CBC was unremarkable. Electrolytes were basically within normal limits. He did have an elevated AST at 73, ALT 98, alkaline phosphatase 170. His cardiac enzymes were negative. TSH 1.04. Chest x-ray shows prominent heart without congestive failure. Head CT showed no acute intracranial abnormality. He was extremely anxious and still quite upset with his daughter, so he received some Xanax. I was called for hospital admission. HOSPITAL COURSE: The patient had no further neurologic changes. There was no increased weakness and we discussed [facility] to help with his weakness. He agreed to be transferred to [facility] in [place]. [facility] has actually accepted the patient, so he will be discharged to that rehab facility today. His girlfriend will take him to the facility on discharge. LABORATORY: Followup CBC was unremarkable. Followup metabolic panel showed a potassium of 3.3 and he received supplementation. His hemoglobin A1c was 5.5. AST slightly improved to 66 and his ALT to 87 and his alkaline phosphatase 141. RADIOLOGY: Carotid ultrasound was completed and shows 1) Doppler evaluation of bilateral carotids and vertebral arteries showed no hemodynamically significant stenosis with Doppler values and [place] scale images indicate a 50-69% diameter stenosis in the left ICA, stable compared to Duplex ultrasound and CTA of the carotids and vertebral complex in April of 2019. 2) Moderate amount of plaque in the carotid arteries bilaterally. Bilateral vertebral arteries show antegrade cephalad flow. All other labs and films have been reviewed via the EMR. DISCHARGE PLAN: The patient will be discharged to [facility] for post stroke rehabilitation. He will be discharged in good condition. He is to increase his activity per Physical Therapy and resume his previous diet. Followup with Carrie Hansen, his primary care provider, in 1 to 2 weeks after discharge. DISCHARGE MEDICATIONS: 1. Gabapentin. 2. Amlodipine. 3. Aspirin. 4. Duloxetine. 5. Hydrocortisone. 6. Hydrocodone. [facility][id number] [facility]
== END 2020-01-29 16:30 ==
LOC: ER 15:30 → MS 19:45
PROVIDERS: ADMIT Nurse Practitioner Acute Care; ATTEND Nurse Practitioner Acute Care
DX: I63.9 Cerebral infarction, unspecified (principal); G81.94 Hemiplegia, unspecified affecting left nondominant side; I10 Essential (primary) hypertension; R74.8 Abnormal levels of other serum enzymes; F32.9 Major depressive disorder, single episode, unspecified; F41.9 Anxiety disorder, unspecified; C14.0 Malignant neoplasm of pharynx, unspecified; J44.9 Chronic obstructive pulmonary disease, unspecified; K21.9 Gastro-esophageal reflux disease without esophagitis; I25.2 Old myocardial infarction; Z79.82 Long term (current) use of aspirin; Z79.899 Other long term (current) drug therapy
CPT/HCPCS: 96374; 96372; J1650; 82553; 80053 ×2; 83036; 80061; 36415 ×2; 85025 ×2; 82550; 83735; 85730; 85610; 84443; 84484; 83880; 71045; 70450; 93880; 94760; 97530; 97162; 99285; 93005; G0378

== ENCOUNTER 2020-03-07 19:19 | Emergency (ER) | payer MEDICARE ==
--- NOTE | 2020-03-07 19:28 | ED.PDOC ---
History of Present Illness - General Time Seen by Provider: 03/07/20 19:20 Additional Information: 84-year-old male patient, with hypertension hyperlipidemia history of a stroke, no previous h story of heart attack, history of throat cancer, patient presents because since 11:00 in the morning patient felt like everything was spinning around lightheaded and also he feels shaky patient arrived POV with a cane and was able to walk from the wheelchair into his bed No chest pain no fever no chills no coughing No history of drugs alcohol or cigarette He is able to speak in long complete sentences does not be in any distress - History of Present Illness Timing/Duration: other - since 11 am Improving Factors: nothing Worsening Factors: nothing Associated Symptoms: trouble walking, other - shaky Allergies/Adverse Reactions: Allergies NO KNOWN ALLERGY Allergy (Verified 01/28/20 15:47) Home Medications: Ambulatory Orders Amlodipine Besylate 10 mg PO DAILY 05/14/19 Gabapentin 600 mg PO TID 05/14/19 Aspirin [Aspirin Adult Low Dose] 81 mg PO DAILY 07/18/19 DULoxetine HCL [Cymbalta] 60 mg PO BEDTIME 10/04/19 Bisacodyl Suppository 10Mg [Dulcolax Suppository 10mg] 03/07/20 Calcium Carbonate-Vitamin D [Calcium + D3 600-200 mg-Unit] 1 tab PO 03/07/20 Diclofenac Epolamine [Flector] 03/07/20 Enoxaparin Sodium [Lovenox] 40 mg SUBCU QD 03/07/20 Lidocaine 5% Patch [Lidoderm Patch] 03/07/20 Ondansetron Odt [Zofran Odt] 4 PRN 03/07/20 Pantoprazole Tablet [Protonix] 03/07/20 Polyethylene Glycol 3350 [Miralax] 17 gm PO DAILY 03/07/20 Trazodone HCl [Trazodone Hydrochloride] 03/07/20 Review of Systems - Review of Systems Constitutional: States: no symptoms reported EENTM: States: no symptoms reported Respiratory: States: no symptoms reported Cardiology: States: no symptoms reported Gastrointestinal/Abdominal: States: no symptoms reported Musculoskeletal: States: no symptoms reported Skin: States: no symptoms reported Neurological: States: other - dizziness Endocrine: States: no symptoms reported Hematologic/Lymphatic: States: no symptoms reported Past Medical History (General) - Patient Medical History Hx Seizures: No Hx Stroke: Yes Hx Dementia: No Hx Asthma: Yes Hx of COPD: Yes Hx Cardiac Disorders: Yes - [place] Hx Congestive Heart Failure: No Hx Pacemaker: No Hx Hypertension: Yes Hx Thyroid Disease: No Hx Diabetes: No Hx Gastroesophageal Reflux: Yes Hx Renal Disease: No Hx Cancer: Yes - Throat CA Hx of HIV: No Hx Hepatitis C: No Hx MRSA: Yes MRSA Source:: Wound - Vaccination History Hx Tetanus, Diphtheria Vaccination: No Hx Influenza Vaccination: Yes Hx Pneumococcal Vaccination: Yes - Social History Hx Tobacco Use: No Hx Chewing Tobacco Use: No Hx Alcohol Use: No Hx Substance Use: No Hx Substance Use Treatment: No Hx Depression: No Hx Physical Abuse: No Hx Emotional Abuse: No Hx Suspected Abuse: No Family Medical History - Family History Father Family History: Unknown Living Status: Hx Family Cancer: Yes Mother Living Status: Cause of : Grief Physical Exam - Physical Exam General Appearance: Alert, Well Developed, Well Groomed, Well Hydrated, Well Nourished, Other - No slurred speech Eye Exam: bilateral normal ENT Exam: normal ENT inspection, hearing grossly normal, TMs normal, pharynx normal Respiratory: chest non-tender, lungs clear, normal breath sounds, no respiratory distress, no accessory muscle use Cardiovascular/Chest: normal peripheral pulses, regular rate, rhythm, no edema, no gallop, no JVD, no murmur Peripheral Pulses: radial,right: 2+, radial,left: 2+ Gastrointestinal/Abdominal: normal bowel sounds, non tender, soft, no organomegaly, no pulsatile mass Extremities Exam: non-tender, normal range of motion, no evidence of injury 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 Mild cardiac enlargement. Calcification of the coronary arteries. No evidence of aortic dissection or pulmonary embolus. Fatty liver. No significant thoracic adenopathy. Focal areas of mosaic attenuation are noted. IMPRESSION:No evidence of pulmonary embolus Cardiac enlargement No evidence of acute process in the chest 03/07/20 20:25 EXAM DESCRIPTION: Head CLINICAL HISTORY: 64 years Male dizziness COMPARISON: CT head without contrast dated January 28, 2020 Technique: Contiguous axial images of the brain were obtained without the administration of intravenous contrast.This exam was performed according to our departmental dose-optimization program which includes use of Automated Exposure Control, adjustment of the mA and/or kV according to patient size and/or use of iterative reconstruction technique. DLP: 859 mGy*cm FINDINGS: Brain: No acute intracranial hemorrhage. No extra-axial collection. No mass effect or herniation. Right posterior temporal encephalomalacia. Mild prominence of the sulci and cisterns. Confluent periventricular and subcortical white matter hypodensity is noted. Ventricles: Within normal limits in size. Patient has normal pattern of troponins EKG first-degree block without evidence of acute ischemic changes, normal troponins normal thyroid 03/07/20 He has nonspecific elevated liver enzymes without abdominal pain patient has no neurological deficit head CT did not show abnormalities, 03/07/20 20:31 Also able to speak with patient's daughter and she tells me that he is having this shakiness since he had a stroke in January, today he just mentioned that he was little dizzy has no neurological deficits here so patient will be discharged home with follow-up primary care physician I discussed with the patient and the family at this is very important and the patient develops any signs and symptoms of a stroke weakness altered mental status slurred speech facial asymmetry unable to walk unable to move and upper extremity he needs to call 911 imm ediately and not wait because if he is going to be a TPA candidate he needs to be seen immediately for us. Patient did not Have no neurological deficit never had any obvious neurological deficit he does mention that he had dizziness and some shakiness shakiness is chronic and patient denies any cerebellar signs Departure - Departure Clinical Impression: Dizziness Disposition: Discharge to Home or Self Care Instructions: Dizziness, Nonvertigo, (DC) Referrals: Carrie Hansen FNP [Primary Care Provider] - 1-2 Weeks Home Medications: Ambulatory Orders Amlodipine Besylate 10 mg PO DAILY 05/14/19 Gabapentin 600 mg PO TID 05/14/19 Aspirin [Aspirin Adult Low Dose] 81 mg PO DAILY 07/18/19 DULoxetine HCL [Cymbalta] 60 mg PO BEDTIME 10/04/19 Bisacodyl Suppository 10Mg [Dulcolax Suppository 10mg] 03/07/20 Calcium Carbonate-Vitamin D [Calcium + D3 600-200 mg-Unit] 1 tab PO 03/07/20 Diclofenac Epolamine [Flector] 03/07/20 Enoxaparin Sodium [Lovenox] 40 mg SUBCU QD 03/07/20 Lidocaine 5% Patch [Lidoderm Patch] 03/07/20 Ondansetron Odt [Zofran Odt] 4 PRN 03/07/20 Pantoprazole Tablet [Protonix] 03/07/20 Polyethylene Glycol 3350 [Miralax] 17 gm PO DAILY 03/07/20 Trazodone HCl [Trazodone Hydrochloride] 03/07/20 Additional Instructions: Follow-up with your primary care physician as soon as possible return to the ER immediately if there is any activities or confusion slurred speech facial asymmetry generalized weakness focal weakness chest pain shortness of breath dizziness fainting or any other concern
[2020-03-07 19:40] VITALS: O2SAT 99
[2020-03-07] MEDS ORDERED: MECLIZINE HCL 12.5 MG TAB PO ONE (19:40)
[2020-03-07] MEDS ORDERED: traMADol HCL 50 MG TAB PO ONE (19:51)
--- NOTE | 2020-03-07 20:12 | RAD ---
EXAM DESCRIPTION: Chest,1 View CLINICAL HISTORY:64 years Male, dizziness Comparison: Chest radiograph dated January 28, 2020 FINDINGS: No focal lung consolidation. No pleural effusion. No pneumothorax. Unchanged cardiomegaly. Mild vascular congestion. No acute osseous abnormality. IMPRESSION: No acute cardiopulmonary disease. Electronically signed by: Rito Myers DO 03/07/2020 8:10 PM CDT
--- NOTE | 2020-03-07 20:15 | CT ---
EXAM DESCRIPTION: Head CLINICAL HISTORY: 64 years Male dizziness COMPARISON: CT head without contrast dated January 28, 2020 Technique: Contiguous axial images of the brain were obtained without the administration of intravenous contrast.This exam was performed according to our departmental dose-optimization program which includes use of Automated Exposure Control, adjustment of the mA and/or kV according to patient size and/or use of iterative reconstruction technique. DLP: 859 mGy*cm FINDINGS: Brain: No acute intracranial hemorrhage. No extra-axial collection. No mass effect or herniation. Right posterior temporal encephalomalacia. Mild prominence of the sulci and cisterns. Confluent periventricular and subcortical white matter hypodensity is noted. Ventricles: Within normal limits in size. Globes and orbits: No acute abnormality. Bones: No acute osseous finding Paranasal sinuses: Paranasal sinuses are clear. Mastoid air cells: Well pneumatized. Soft tissues: Within normal limits IMPRESSION: No acute intracranial hemorrhage, hydrocephalus or herniation.. Cerebral volume loss, chronic small vessel ischemic changes and right temporal encephalomalacia. If persistent clinical concern for acute ischemia, consider MRI brain without contrast for further evaluation. Electronically signed by: Rito Myers DO 03/07/2020 8:13 PM CDT
[2020-03-07 20:43] VITALS: BP 140/85; TEMP 98.3
== END 2020-03-07 20:40 | disposition home or self-care (01) ==
LOC: ER 19:19
DX: R42 Dizziness and giddiness (principal); J44.9 Chronic obstructive pulmonary disease, unspecified; I10 Essential (primary) hypertension; E78.5 Hyperlipidemia, unspecified; I25.2 Old myocardial infarction

== ENCOUNTER 2020-06-01 12:35 | Emergency (ER) | payer MEDICARE ==
--- NOTE | 2020-06-01 12:50 | ED.PDOC ---
History of Present Illness - General Time Seen by Provider: 06/01/20 12:46 Additional Information: 64-year-old male patient, with hypertension recently discharged from a different facility after having back surgery to chronic back pain, patient was discharged home with tramadol and hydrocodone, family members concerned because he recently was discharged, he has not been eating he has been spending most of his time on his bed, and sleepy, No fever no chills no chest pain Patient is concerned because he might be dehydrated - History of Present Illness Timing/Duration: other - yesterday Improving Factors: nothing Worsening Factors: nothing Associated Symptoms: weakness Allergies/Adverse Reactions: Allergies NO KNOWN ALLERGY Allergy (Verified 06/01/20 13:17) Home Medications: Ambulatory Orders Amlodipine Besylate 10 mg PO DAILY 05/14/19 Gabapentin 600 mg PO TID 05/14/19 Aspirin [Aspirin Adult Low Dose] 81 mg PO DAILY 07/18/19 DULoxetine HCL [Cymbalta] 60 mg PO BEDTIME 10/04/19 Bisacodyl Suppository 10Mg [Dulcolax Suppository 10mg] 03/07/20 Calcium Carbonate-Vitamin D [Calcium + D3 600-200 mg-Unit] 1 tab PO 03/07/20 Diclofenac Epolamine [Flector] 03/07/20 Enoxaparin Sodium [Lovenox] 40 mg SUBCU QD 03/07/20 Lidocaine 5% Patch [Lidoderm Patch] 03/07/20 Ondansetron Odt [Zofran Odt] 4 PRN 03/07/20 Pantoprazole Tablet [Protonix] 03/07/20 Polyethylene Glycol 3350 [Miralax] 17 gm PO DAILY 03/07/20 Trazodone HCl [Trazodone Hydrochloride] 03/07/20 Review of Systems - Review of Systems Constitutional: States: no symptoms reported EENTM: States: no symptoms reported Respiratory: States: no symptoms reported Cardiology: States: no symptoms reported Gastrointestinal/Abdominal: States: no symptoms reported Genitourinary: States: no symptoms reported Skin: States: no symptoms reported Neurological: States: no symptoms reported Endocrine: States: no symptoms reported Hematologic/Lymphatic: States: no symptoms reported Past Medical History (General) - Patient Medical History Hx Seizures: No Hx Stroke: Yes Hx Dementia: No Hx Asthma: Yes Hx of COPD: Yes Hx Cardiac Disorders: Yes - [place] Hx Congestive Heart Failure: No Hx Pacemaker: No Hx Hypertension: Yes Hx Thyroid Disease: No Hx Diabetes: No Hx Gastroesophageal Reflux: Yes Hx Renal Disease: No Hx Cancer: Yes - Throat CA Hx of HIV: No Hx Hepatitis C: No Hx MRSA: Yes MRSA Source:: Wound - Vaccination History Hx Tetanus, Diphtheria Vaccination: No Hx Influenza Vaccination: Yes Hx Pneumococcal Vaccination: Yes - Social History Hx Tobacco Use: No Hx Chewing Tobacco Use: No Hx Alcohol Use: No Hx Substance Use: No Hx Substance Use Treatment: No Hx Depression: No Hx Physical Abuse: No Hx Emotional Abuse: No Hx Suspected Abuse: No Family Medical History - Family History Father Family History: Unknown Living Status: Hx Family Cancer: Yes Mother Living Status: Cause of : Grief Physical Exam - Physical Exam General Appearance: Alert Eye Exam: bilateral normal Ears, Nose, Throat: hearing grossly normal, normal ENT inspection, normal pharynx Respiratory: chest non-tender, lungs clear, normal breath sounds, no respiratory distress, no accessory muscle use Cardiovascular/Chest: normal peripheral pulses, regular rate, rhythm, no edema, no gallop, no JVD, no murmur Peripheral Pulses: radial,right: 2+, radial,left: 2+ Gastrointestinal/Abdominal: normal bowel sounds, non tender, soft, no organomegaly, no pulsatile mass Extremity: normal range of motion, non-tender, normal inspection, no pedal edema 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, alert, normal mood/affect, oriented x 3 Skin Exam: normal color Lymphatic: no adenopathy Progress - Progress Progress: Patient is ambulatory, patient has been on hydrocodone and tramadol he said that the pain in his back is under control, but the patient has been very drowsy and sleepy with the tramadol and the hydrocodone Patient does not appear toxic does not any distress Patient has no neurological deficits 06/01/20 13:42 06/01/20 14:36 Blood work looks pretty okay, patient has been able to tolerate by mouth will be discharged home with stretching to keep himself hydrated at home Return to the ER immediately any fever chills chest pain shortness of breath abdomen disorder confusion or any other concerns Departure - Departure Clinical Impression: Generally unwell, Weakness Disposition: Discharge to Home or Self Care Condition: Fair Instructions: Generalized Weakness (DC), Full Liquid Diet Diet: full liquid diet Referrals: Carrie Hansen FNP [Primary Care Provider] - 1-2 Weeks Home Medications: Ambulatory Orders Amlodipine Besylate 10 mg PO DAILY 05/14/19 Gabapentin 600 mg PO TID 05/14/19 Aspirin [Aspirin Adult Low Dose] 81 mg PO DAILY 07/18/19 DULoxetine HCL [Cymbalta] 60 mg PO BEDTIME 10/04/19 Bisacodyl Suppository 10Mg [Dulcolax Suppository 10mg] 03/07/20 Calcium Carbonate-Vitamin D [Calcium + D3 600-200 mg-Unit] 1 tab PO 03/07/20 Diclofenac Epolamine [Flector] 03/07/20 Enoxaparin Sodium [Lovenox] 40 mg SUBCU QD 03/07/20 Lidocaine 5% Patch [Lidoderm Patch] 03/07/20 Ondansetron Odt [Zofran Odt] 4 PRN 03/07/20 Pantoprazole Tablet [Protonix] 03/07/20 Polyethylene Glycol 3350 [Miralax] 17 gm PO DAILY 03/07/20 Trazodone HCl [Trazodone Hydrochloride] 03/07/20
[2020-06-01] MEDS ORDERED: SODIUM CHLORIDE 0.9% 1000ML 1,000 ML IVS ONE (13:02)
[2020-06-01 14:59] VITALS: BP 169/97; TEMP 99.6; O2SAT 97
== END 2020-06-01 14:50 | disposition home or self-care (01) ==
LOC: ER 12:35
DX: R53.1 Weakness (principal); I10 Essential (primary) hypertension; I25.2 Old myocardial infarction; J44.9 Chronic obstructive pulmonary disease, unspecified; K21.9 Gastro-esophageal reflux disease without esophagitis; Z98.890 Other specified postprocedural states; Z85.819 Personal history of malignant neoplasm of unspecified site of lip, oral cavity, and pharynx; Z86.73 Personal history of transient ischemic attack (TIA), and cerebral infarction without residual deficits; Z79.899 Other long term (current) drug therapy; Z79.82 Long term (current) use of aspirin
CPT/HCPCS: 36415; 80053; 84443; 85025; J7030

== ENCOUNTER 2020-06-23 09:42 | Emergency (ER) | payer MEDICARE ==
[2020-06-23] MEDS ORDERED: methylPREDNISolone SODIUM SUC 125 MG/2 ML VIAL IV ONE (09:54)
[2020-06-23] MEDS ORDERED: IPRATROPIUM/ALBUTEROL 3 ML VIAL NEB ONE (09:54)
--- NOTE | 2020-06-23 09:54 | ED.PDOC ---
History of Present Illness - General Time Seen by Provider: 06/23/20 09:49 Source: patient, RN notes reviewed, Vital Signs reviewed Exam Limitations: clinical condition Additional Information: 64-year-old male patient, with history of a previous stroke, history of back problems recently had surgery on his back, last week presented with a 3-day history of shortness of breath, patient said that he has been short of breath even with minimal exertion denies any chest pain denies fever chills denies coughing. Patient does not have a history of COPD and never smoker Arrived POV was able to walk with the help of a cane, but looks fatiged while walking ,back surgery been doing at [facility] he had trouble with T12, have also rods put in his back - History of Present Illness Timing/Duration: other - 3 days Improving Factors: nothing Worsening Factors: nothing Associated Symptoms: shortness of breath Allergies/Adverse Reactions: Allergies NO KNOWN ALLERGY Allergy (Verified 06/23/20 10:30) Home Medications: Ambulatory Orders Amlodipine Besylate 10 mg PO DAILY 05/14/19 Gabapentin 600 mg PO TID 05/14/19 Aspirin [Aspirin Adult Low Dose] 81 mg PO DAILY 07/18/19 DULoxetine HCL [Cymbalta] 60 mg PO BEDTIME 10/04/19 Bisacodyl Suppository 10Mg [Dulcolax Suppository 10mg] 03/07/20 Calcium Carbonate-Vitamin D [Calcium + D3 600-200 mg-Unit] 1 tab PO 03/07/20 Diclofenac Epolamine [Flector] 03/07/20 Enoxaparin Sodium [Lovenox] 40 mg SUBCU QD 03/07/20 Lidocaine 5% Patch [Lidoderm Patch] 03/07/20 Ondansetron Odt [Zofran Odt] 4 PRN 03/07/20 Pantoprazole Tablet [Protonix] 03/07/20 Polyethylene Glycol 3350 [Miralax] 17 gm PO DAILY 03/07/20 Trazodone HCl [Trazodone Hydrochloride] 03/07/20 Review of Systems - Review of Systems Constitutional: States: no symptoms reported EENTM: States: no symptoms reported Respiratory: States: short of breath Cardiology: States: no symptoms reported Gastrointestinal/Abdominal: States: no symptoms reported Genitourinary: States: no symptoms reported Musculoskeletal: States: no symptoms reported Skin: States: no symptoms reported Neurological: States: no symptoms reported Endocrine: States: no symptoms reported Hematologic/Lymphatic: States: no symptoms reported Past Medical History (General) - Patient Medical History Hx Seizures: No Hx Stroke: Yes Hx Dementia: No Hx Asthma: Yes Hx of COPD: Yes Hx Cardiac Disorders: Yes - [place] Hx Congestive Heart Failure: No Hx Pacemaker: No Hx Hypertension: Yes Hx Thyroid Disease: No Hx Diabetes: No Hx Gastroesophageal Reflux: Yes Hx Renal Disease: No Hx Cancer: Yes - Throat CA Hx of HIV: No Hx Hepatitis C: No Hx MRSA: Yes MRSA Source:: Wound - Vaccination History Hx Tetanus, Diphtheria Vaccination: No Hx Influenza Vaccination: Yes Hx Pneumococcal Vaccination: Yes - Social History Hx Tobacco Use: No Hx Chewing Tobacco Use: No Hx Alcohol Use: No Hx Substance Use: No Hx Substance Use Treatment: No Hx Depression: No Hx Physical Abuse: No Hx Emotional Abuse: No Hx Suspected Abuse: No - Female History Patient : No Family Medical History - Family History Father Family History: Unknown Living Status: Hx Family Cancer: Yes Mother Living Status: Cause of : Grief Physical Exam - Physical Exam General Appearance: Alert, Well Developed, Well Groomed, Well Hydrated, Well Nourished, Other - able Speak in long sentences Eye Exam: bilateral normal Ears, Nose, Throat: hearing grossly normal, normal ENT inspection, normal pharynx Neck: non-tender, full range of motion, supple Respiratory: wheezing Cardiovascular/Chest: normal peripheral pulses, regular rate, rhythm, no JVD Peripheral Pulses: radial,right: 2+, radial,left: 2+ Gastrointestinal/Abdominal: normal bowel sounds, non tender, soft, no organomegaly, no pulsatile mass Back Exam: normal inspection, no CVA tenderness, no vertebral tenderness Extremity: pedal edema, swelling 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 Lentiform rim-enhancing extrapleural fluid collection along the posterior left chest corresponds to the location of segmental absence of the left ribs 10 and 11, suggesting prior thoracotomy. Recommend clinical correlation. In the absence of prior surgical intervention, findings would be concerning for lytic osseous lesions, including malignancy. The corresponding rim-enhancing fluid is of indeterminate sterility by imaging. patient had back surgery earlier this month, patient is a very poor historian he cannot remember the doctor that performed the procedure. Chest x-ray show evidence of a large left pleural effusion, at this point I order blood cultures, I order antibiotics patient EKG did not show any acute ischemic changes on the sinus tachycardia, and patient troponins are BMP were negative. Patient just had this back surgery I was concerned for pulmonary emboli so I ordered a CTA and the D-dimers were super elevated. Patient's daughter did have evidence of a pleural effusion that required drainage this was done back in May at [facility], underwent a back procedure but also right looks like a thoracocentesis. He is not requiring oxygen he is tachycardic, CTA did not show evidence of PE, but this large pleural effusion may explain why patient is short of breath, high-level care facility for shortness of breath and large pleural effusion 06/23/20 12:18 Departure - Departure Clinical Impression: Shortness of breath, Pleural effusion Disposition: Transfer to Hospital Condition: Fair Referrals: Carrie Hansen FNP [Primary Care Provider] - 1-2 Weeks Home Medications: Ambulatory Orders Amlodipine Besylate 10 mg PO DAILY 05/14/19 Gabapentin 600 mg PO TID 05/14/19 Aspirin [Aspirin Adult Low Dose] 81 mg PO DAILY 07/18/19 DULoxetine HCL [Cymbalta] 60 mg PO BEDTIME 10/04/19 Bisacodyl Suppository 10Mg [Dulcolax Suppository 10mg] 03/07/20 Calcium Carbonate-Vitamin D [Calcium + D3 600-200 mg-Unit] 1 tab PO 03/07/20 Diclofenac Epolamine [Flector] 03/07/20 Enoxaparin Sodium [Lovenox] 40 mg SUBCU QD 03/07/20 Lidocaine 5% Patch [Lidoderm Patch] 03/07/20 Ondansetron Odt [Zofran Odt] 4 PRN 03/07/20 Pantoprazole Tablet [Protonix] 03/07/20 Polyethylene Glycol 3350 [Miralax] 17 gm PO DAILY 03/07/20 Trazodone HCl [Trazodone Hydrochloride] 03/07/20 Transfer to Outside Facility - Transfer Information Decision to Transfer Date: 06/23/20 Decision to Transfer Time: 12:23 Reason for Transfer: required specialist not available [facility]
[2020-06-23 10:28] VITALS: TEMP 99
[2020-06-23] MEDS ORDERED: cefTRIAXone SODIUM 1 GM in SODIUM CHL 0.9% 50ML MIN-BAG+ 50 ML IVPB ONE (10:32)
[2020-06-23] MEDS ORDERED: AZITHROMYCIN IV 500 MG in SODIUM CHLORIDE 0.9% 250ML 250 ML IVPB ONE (10:33)
[2020-06-23] MEDS ORDERED: MORPHINE SULFATE INJ 10 MG/ML VIAL IV ONE (11:09)
[2020-06-23] MEDS ORDERED: ONDANSETRON INJ 4 MG/2 ML VIAL IV ONE (11:09)
--- NOTE | 2020-06-23 11:11 | RAD ---
Study: Single Frontal Radiograph of the Chest. Indication:SOB Comparison: March 07, 2020 Impression: Cardiomegaly. Progressive moderate to large left pleural effusion with left basilar atelectasis versus consolidation. No pneumothorax. Follow-up to resolution recommended. Electronically signed by: Librado Fernández MD 06/23/2020 11:09 AM CDT
--- NOTE | 2020-06-23 12:01 | CT ---
CT CHEST ANGIOGRAPHY WITH IV CONTRAST HISTORY: 64 years Male rule pe COMPARISON: January 02, 2020. TECHNIQUE: Helical tomographic images of the chest were obtained after the administration of intravenous contrast per facility angiogram protocol. 3-D MIP reconstructions were created. Coronal and sagittal reformatted images were also provided. This exam was performed according to our departmental dose-optimization program, which includes automated exposure control, adjustment of the mA and/or kV according to patient size and/or use of iterative reconstruction technique. FINDINGS: Diagnostic quality: Motion artifact and early contrast timing and/or reduced cardiac output limit evaluation of the segmental and smaller pulmonary arteries. Pulmonary arteries: No filling defect identified within the main pulmonary arteries or pulmonary trunk. Pulmonary vessels appear demonstrate grossly normal caliber. Lungs/airways/pleura: Large volume left pleural effusion is present, with complete atelectasis of the left lower lobe. No pleural enhancement or thickening to suggest empyema. There is a a suspected extrapleural lentiform fluid collection in the posterior left thorax with mild peripheral enhancement measuring approximately 1.8 cm in thickness, indeterminate sterility. This location corresponds to the location of left rib 10 and 11 segmental resection versus lysis. Correlate with prior surgical history. Aerated portions of the lungs otherwise appear clear. Central airways appear grossly patent. Heart/pericardium: Heart size is normal. No right heart strain. No significant pericardial fluid detected. Mediastinum/bahman: No mediastinal or hilar mass or lymphadenopathy. Coarse calcifications in the left hilar region suggest prior granulomatous disease. Systemic vasculature: There are scattered atherosclerotic changes noted, including involvement of the coronary arteries. Regional surrounding soft tissues: Unremarkable. Bones: No acute process detected. Included abdomen: No acute process detected. Thoracolumbar fusion changes again noted. IMPRESSION: Limited exam as discussed, without evidence of a pulmonary embolus within the main pulmonary arteries are prominent trunk. Large left pleural effusion with complete atelectasis of the left lower lobe. Lentiform rim-enhancing extrapleural fluid collection along the posterior left chest corresponds to the location of segmental absence of the left ribs 10 and 11, suggesting prior thoracotomy. Recommend clinical correlation. In the absence of prior surgical intervention, findings would be concerning for lytic osseous lesions, including malignancy. The corresponding rim-enhancing fluid is of indeterminate sterility by imaging. Electronically signed by: Golden Han MD 06/23/2020 11:59 AM CDT
[2020-06-23 12:06] VITALS: O2SAT 96
[2020-06-23 13:33] VITALS: BP 152/87
== END 2020-06-23 12:55 | disposition short-term general hospital (02) ==
LOC: ER 09:42
DX: J90 Pleural effusion, not elsewhere classified (principal); R06.02 Shortness of breath; J98.11 Atelectasis; R00.0 Tachycardia, unspecified; K21.9 Gastro-esophageal reflux disease without esophagitis; I25.2 Old myocardial infarction; I10 Essential (primary) hypertension; Z20.828 Contact with and (suspected) exposure to other viral communicable diseases; Z98.890 Other specified postprocedural states; Z86.73 Personal history of transient ischemic attack (TIA), and cerebral infarction without residual deficits; Z85.819 Personal history of malignant neoplasm of unspecified site of lip, oral cavity, and pharynx; Z79.899 Other long term (current) drug therapy; Z79.82 Long term (current) use of aspirin
CPT/HCPCS: 36415; 71045; 71275; 80053; 83880; 84484; 85025; 85379; 87040; 87635; 93005; 94640; J0456; J0696; J2270; J2405; J2930; J7050; J7620

== ENCOUNTER → 2020-09-08 | Outpatient (CLI) | payer MEDICARE ==
--- NOTE | 2020-09-08 14:55 | RAD ---
EXAM DESCRIPTION: Ribs,Left 3 Views CLINICAL HISTORY: 65 years Male, pleurodynia COMPARISON: CT chest June 23, 2020 FINDINGS: Images of the ribs are obtained. Multiple bone detail films of the left ribs are negative for acute fracture. Old healed fractures anterolateral left second through fourth ribs. Orthopedic hardware in the lower thoracic and lumbar spine partly visualized. Heart is prominent. Left lung is clear. Degenerative changes at the left AC joint. Calcified aortic arch. X-ray images of the lower ribs shows normal appearance of the right lower ribs. Calcification in the region of the right kidney consistent with a stone. Orthopedic hardware in the thoracolumbar spine. Defects are seen in the posterolateral left ninth and 10th ribs. These are likely surgical defects rather than bone destruction. Patient had a previous CT chest June 23, 2020 which showed defects in the posterolateral ribs, extrapleural hemorrhage and large left pleural effusion. No pleural effusion on the present study. IMPRESSION: Defects of the posterolateral left ninth and 10th ribs likely postoperative. No acute rib fracture. Electronically signed by: Jan Moon MD 09/08/2020 2:54 PM [facility]
--- NOTE | 2020-09-08 15:00 | CT ---
EXAM DESCRIPTION: Abdoment/Pelvis w/o Contrast CLINICAL HISTORY: 65 years Male, abdominal pain COMPARISON: CT abdomen and pelvis 12/04/2019. CT chest 06/23/2020 TECHNIQUE: CT of the abdomen and pelvis acquired without IV contrast material. Coronal and sagittal reformations provided. This exam was performed according to our departmental dose-optimization program, which includes automated exposure control, adjustment of the mA and/or kV according to patient size and/or use of iterative reconstruction technique. FINDINGS: Lung bases: Clear. Limited evaluation of the solid organs secondary to the lack of intravenous contrast. Solid Organs: Unremarkable noncontrast appearance of the liver, pancreas, adrenal glands. Gallbladder surgically absent without biliary ductal dilatation. Punctate calcified. Lungs within spleen. Millimetric calcifications within the right kidney. No left renal stone. No ureteral stones bilaterally. No hydronephroureter or perinephric collection. GI tract: Decompressed stomach. No small bowel obstruction. Scattered diverticula. Moderate colonic stool. Appendix is not identified. No pericecal inflammation. Vascular: Mild atherosclerosis. Paraesophageal varices present. Musculoskeletal and soft tissues: No acute fracture or aggressive appearing osseous lesion. Chronic posterior right rib fractures. Chronic deformity to the posterior left lower ribs. Small right and moderate left fat-containing inguinal hernias. Urinary bladder: Thickening of the urinary bladder as before measuring up to 8 mm in thickness maximally. Prostate: Normal. Other: None. IMPRESSION: 1. No acute abnormality of the abdomen or pelvis on this noncontrast study. 2. Resolved left pleural effusion and stable chronic deformity to the posterior left lower ribs. 3. Nonobstructing right renal stones. 4. Chronic urinary bladder wall thickening. 5. Sigmoid diverticulosis and moderate colonic stool. Electronically signed by: Greg Rincon MD 09/08/2020 2:59 PM [employer]
== END ==
LOC: RAD 09:11
PROVIDERS: ATTEND Nurse Practitioner
DX: M89.9 Disorder of bone, unspecified (principal); N20.0 Calculus of kidney; N32.89 Other specified disorders of bladder; K57.30 Diverticulosis of large intestine without perforation or abscess without bleeding; R07.81 Pleurodynia

== ENCOUNTER → 2020-11-07 | Outpatient (CLI) | payer MEDICARE | LOC: LAB.O 14:24 | PROVIDERS: ATTEND Internal Medicine Gastroenterology | DX: B18.2 Chronic viral hepatitis C (principal) ==